=== PATIENT | male | born 1965 | race Caucasian/White ===

== ENCOUNTER → 2022-02-08 | Outpatient (CLI) | payer OTHER ==
--- NOTE | 2022-02-08 12:36 | CT ---
EXAMINATION TYPE: CT brain wo con DATE OF EXAM: 02/08/2022 COMPARISON: None HISTORY: Subdural hemorrhage. CT DLP: 1098.8 mGycm Automated exposure control for dose reduction was used. Helical imaging through the brain. FINDINGS: There is abnormal low attenuation, encephalomalacia and likely underlying gliosis involving the right frontal, parietal, occipital regions, ex vacuo phenomenon present of the right lateral ventricle. Co rtical atrophy is present. Basal ganglia on the right also show encephalomalacia possibly extending t o the level of the thalamus. No acute hemorrhage or hydrocephalus is suspected. The calvarium is inta ct. Orbits show symmetric appearance. Cerebral vascular calcifications are present. Paranasal sinuses and mastoid air cells appear well aerated. IMPRESSION: EXTENSIVE LOSS OF BRAIN VOLUME IS PRESENT ON THE RIGHT. COMPARISON WITH OLD EXAM MAY BE OF BENEFIT TO ASSESS FOR ANY INTERVAL CHANGE IF AVAILABLE.
--- NOTE | 2022-02-08 15:12 | US ---
EXAMINATION TYPE: US liver DATE OF EXAM: 02/08/2022 COMPARISON: NONE CLINICAL HISTORY: History of brain bleed I62.00 R94.5. Patient stated had abnormal liver bloodwork; h aving CT today; patient ate breakfast sandwich this morning. EXAM MEASUREMENTS: Liver Length: 15.0 cm Gallbladder Wall: 0.2 cm CBD: 0.4 cm Right Kidney: 11.4 x 4.8 x 4.1 cm Pancreas: Obscured by bowel gas Liver: wnl Gallbladder: wnl Evidence for sonographic De Santiago's sign: no CBD: wnl Right Kidney: No hydronephrosis or masses seen IMPRESSION: 1. No suspicious acute ultrasound of the abdomen abnormality
== END | disposition home or self-care (01) ==
LOC: RADUSWWP 10:41
PROVIDERS: ATTEND Internal Medicine
DX: I62.00 Nontraumatic subdural hemorrhage, unspecified (principal); R94.5 Abnormal results of liver function studies; R90.89 Other abnormal findings on diagnostic imaging of central nervous system
CPT/HCPCS: 70450; 76705

== ENCOUNTER 2022-08-12 10:02 | Inpatient (IN) | payer OTHER ==
[2022-08-12] MEDS ORDERED: SODIUM CHLORIDE 0.9% 1,000 ML IV STA ×3 (10:50→13:48)
[2022-08-12] MEDS ORDERED: ONDANSETRON 4 MG/2 ML VIAL IVP STA (10:50)
[2022-08-12] MEDS ORDERED: PANTOPRAZOLE 40 MG/10 ML VIAL IVP STA (10:50)
--- NOTE | 2022-08-12 10:51 | ED ---
Nausea/Vomiting/Diarrhea HPI - General Chief complaint: Nausea/Vomiting/Diarrhea Stated complaint: vomiting Time Seen by Provider: 08/12/22 10:43 Source: patient, RN notes reviewed Mode of arrival: ambulatory Limitations: no limitations - History of Present Illness Initial comments: This is a 56-year-old male who presents to the emergency department for nausea and vomiting. States that he was awake all night throwing up and has been unable to keep anything down for approximately 2 weeks. 2 weeks ago, he became septic from a UTI and was put on antibiotics. He was initially treated at the hospital in [place], [place], however he was unable to keep down those antibiotics. He then followed up with his PCP, Dr. Cabello, on 08/07, and was given an additio nal round of antibiotics, however he has also been unable to keep those down. He has associated abdominal pain in the epigastric and right upper quadrant region with radiation into the back. Denies any fevers, chills, sore throat, cough, dyspnea, chest pain, palpitations, diarrhea, or headaches. MD complaint: nausea, vomiting, abdominal pain Associated Abdominal Pain: Yes Location: RUQ, epigastric Radiation: other (Back) Context: recent antibiotic use - Related Data Home Medications Medication Instructions Recorded Confirmed Aspirin EC [Ecotrin Low Dose] 81 mg PO DAILY 01/06/22 08/12/22 Baclofen 5 mg PO TID PRN 01/06/22 08/12/22 rOPINIRole HCL [Requip] 0.5 mg PO DIRECTED 01/06/22 08/12/22 traZODone HCL [Desyrel] 100 mg PO DIRECTED 01/06/22 08/12/22 ALPRAZolam [Xanax] 0.5 mg PO TID PRN 08/12/22 08/12/22 ARIPiprazole [Abilify] 2 mg PO DAILY 08/12/22 08/12/22 Cefdinir [Omnicef] 300 mg PO DIRECTED 08/12/22 08/12/22 Diphenoxylate HCl/Atropine 1 tab PO BID PRN 08/12/22 08/12/22 [Lomotil 2.5-0.025 mg Tablet] Escitalopram [Lexapro] 20 mg PO DAILY 08/12/22 08/12/22 Ondansetron Odt [Zofran Odt] 4 mg PO Q12HR PRN 08/12/22 08/12/22 Pantoprazole [Protonix] 40 mg PO DIRECTED 08/12/22 08/12/22 Allergies Allergy/AdvReac Type Severity Reaction Status Date / Time No Known Allergies Allergy Verified 08/12/22 11:58 Review of Systems ROS Statement: Those systems with pertinent positive or pertinent negative responses have been documented in the HPI. ROS Other: All systems not noted in ROS Statement are negative. Past Medical History Past Medical History: CVA/TIA Additional Past Medical History / Comment(s): left side deficits from cva History of Any Multi-Drug Resistant Organisms: None Reported Additional Past Surgical History / Comment(s): pins in thumb Past Psychological History: No Psychological Hx Reported Smoking Status: Never smoker Past Alcohol Use History: Occasional Past Drug Use History: None Reported General Exam Limitations: no limitations General appearance: alert, in distress Head exam: Present: atraumatic, normocephalic, normal inspection Respiratory exam: Present: normal lung sounds bilaterally. Absent: respiratory distress, wheezes, rales, rhonchi, stridor Cardiovascular Exam: Present: regular rate, normal rhythm, normal heart sounds. Absent: systolic murmur, diastolic murmur, rubs, gallop, clicks GI/Abdominal exam: Present: soft, tenderness (Epigastric and right upper quadrant), normal bowel sounds. Absent: distended, guarding, rebound, rigid Extremities exam: Present: normal inspection, full ROM, normal capillary refill. Absent: tenderness, pedal edema, joint swelling, calf tenderness Neurological exam: Present: alert, oriented X3 Psychiatric exam: Present: normal affect, normal mood Skin exam: Present: warm, dry, intact, normal color. Absent: rash Course Vital Signs 08/12/22 08/12/22 08/12/22 10:05 13:00 13:55 Temperature 98.7 F Pulse Rate 74 102 H 100 Respiratory 20 18 18 Rate Blood Pressure 134/74 117/81 143/95 O2 Sat by Pulse 99 96 96 Oximetry Procedures - Sepsis Sepsis Focused Exam #1 Time Sepsis Criteria Met: 12:55 Sepsis Focused Exam Date: 08/12/22 Sepsis Focused Exam Time: 13:00 Sepsis Focused Exam Complete: Yes Vital Signs & RN Notes Reviewed: Yes Capillary Refill: < 2 Seconds: Fingers, Toes Peripheral Pulses: Normal: Radial (R), Radial (L), Dorsalis Pedis (R), Dorsalis Pedis (L) Skin Color: Normal for Patient Respiratory Exam: normal lung sounds Cardiovascular Exam: regular rate Medical Decision Making - Medical Decision Making This is a 56-year-old male who presents to the emergency department for nausea, vomiting, and abdominal pain. Patient was given IV fluids, Zofran, and Pr otonix. He had improvement in symptoms following medication administration with some residual pain. He was subsequently given a dose of Toradol. Ultrasound of the gallbladder obtained due to the location of the patient's pain. This identified no acute intra-abdominal irregularities. He did end up having another episode of emesis, and required a dose of Reglan. His urine does appear infected with a large amount of leukoesterase and high white blood cells. Lab work reveals leukocytosis and and a lactic acid of 4.0, meeting sepsis criteria. This was identified at approximately 1255 and focus exam was completed at 1300. Patient had already been started on his first liter of IV fluids and a second liter was subsequently ordered. Patient then placed on 130 mL an hour of maintenance fluids. Blood cultures were obtained and the patient was started on vancomycin and ceftriaxone. This case was discussed in detail with the attending ED physician. Presentation, findings, and treatment plan discussed in detail as well. - Lab Data Result diagrams: 08/12/22 11:21 08/12/22 11:21 Lab Results 08/12/22 08/12/22 08/12/22 Range/Units 11:21 11:21 11:21 WBC 19.5 H (3.8-10.6) k/uL RBC 5.27 (4.30-5.90) m/uL Hgb 15.2 (13.0-17.5) gm/dL Hct 45.5 (39.0-53.0) % MCV 86.4 (80.0-100.0) fL MCH 28.9 (25.0-35.0) pg MCHC 33.5 (31.0-37.0) g/dL RDW 13.8 (11.5-15.5) % Plt Count 517 H (150-450) k/uL MPV 7.1 Neutrophils % 94 % Lymphocytes % 3 % Monocytes % 3 % Eosinophils % 1 % Basophils % 0 % Neutrophils # 18.3 H (1.3-7.7) k/uL Lymphocytes # 0.6 L (1.0-4.8) k/uL Monocytes # 0.5 (0-1.0) k/uL Eosinophils # 0.1 (0-0.7) k/uL Basophils # 0.0 (0-0.2) k/uL Sodium 137 (137-145) mmol/L Potassium 4.1 (3.5-5.1) mmol/L Chloride 97 L (98-107) mmol/L Carbon Dioxide 26 (22-30) mmol/L Anion Gap 14 mmol/L BUN 8 L (9-20) mg/dL Creatinine 0.75 (0.66-1.25) mg/dL Est GFR (CKD-EPI)AfAm >90 (>60 ml/min/1.73 sqM) Est GFR (CKD-EPI)NonAf >90 (>60 ml/min/1.73 sqM) Glucose 136 H (74-99) mg/dL Plasma Lactic Acid Lasha (0.7-2.0) mmol/L Calcium 9.1 (8.4-10.2) mg/dL Total Bilirubin 0.6 (0.2-1.3) mg/dL AST 23 (17-59) U/L ALT 34 (4-49) U/L Alkaline Phosphatase 67 (38-126) U/L Troponin I (0.000-0.034) ng/mL Total Protein 7.1 (6.3-8.2) g/dL Albumin 4.4 (3.5-5.0) g/dL Amylase 53 (30-110) U/L Lipase 32 (23-300) U/L Urine Color Urine Appearance (Clear) Urine pH (5.0-8.0) Ur Specific [place] (1.001-1.035) Urine Protein (Negative) Urine Glucose (UA) (Negative) Urine Ketones (Negative) Urine Blood (Negative) Urine Nitrite (Negative) Urine Bilirubin (Negative) Urine Urobilinogen (<2.0) mg/dL Ur Leukocyte Esterase (Negative) Urine RBC (0-5) /hpf Urine WBC (0-5) /hpf Amorphous Sediment (None) /hpf Urine Mucus (None) /hpf Coronavirus (PCR) (Not Detectd) Influenza Type A RNA Not Detected (Not Detectd) Influenza Type B (PCR) Not Detected (Not Detectd) 08/12/22 08/12/22 08/12/22 Range/Units 11:21 11:21 12:12 WBC (3.8-10.6) k/uL RBC (4.30-5.90) m/uL Hgb (13.0-17.5) gm/dL Hct (39.0-53.0) % MCV (80.0-100.0) fL MCH (25.0-35.0) pg MCHC (31.0-37.0) g/dL RDW (11.5-15.5) % Plt Count (150-450) k/uL MPV Neutrophils % % Lymphocytes % % Monocytes % % Eosinophils % % Basophils % % Neutrophils # (1.3-7.7) k/uL Lymphocytes # (1.0-4.8) k/uL Monocytes # (0-1.0) k/uL Eosinophils # (0-0.7) k/uL Basophils # (0-0.2) k/uL Sodium (137-145) mmol/L Potassium (3.5-5.1) mmol/L Chloride (98-107) mmol/L Carbon Dioxide (22-30) mmol/L Anion Gap mmol/L BUN (9-20) mg/dL Creatinine (0.66-1.25) mg/dL Est GFR (CKD-EPI)AfAm (>60 ml/min/1.73 sqM) Est GFR (CKD-EPI)NonAf (>60 ml/min/1.73 sqM) Glucose (74-99) mg/dL Plasma Lactic Acid Lasha (0.7-2.0) mmol/L Calcium (8.4-10.2) mg/dL Total Bilirubin (0.2-1.3) mg/dL AST (17-59) U/L ALT (4-49) U/L Alkaline Phosphatase (38-126) U/L Troponin I <0.012 (0.000-0.034) ng/mL Total Protein (6.3-8.2) g/dL Albumin (3.5-5.0) g/dL Amylase (30-110) U/L Lipase (23-300) U/L Urine Color Yellow Urine Appearance Cloudy (Clear) Urine pH 7.0 (5.0-8.0) Ur Specific [place] 1.016 (1.001-1.035) Urine Protein Trace H (Negative) Urine Glucose (UA) Trace H (Negative) Urine Ketones Negative (Negative) Urine Blood Negative (Negative) Urine Nitrite Negative (Negative) Urine Bilirubin Negative (Negative) Urine Urobilinogen <2.0 (<2.0) mg/dL Ur Leukocyte Esterase Large H (Negative) Urine RBC 2 (0-5) /hpf Urine WBC 81 H (0-5) /hpf Amorphous Sediment Occasional H (None) /hpf Urine Mucus Rare H (None) /hpf Coronavirus (PCR) Not Detected (Not Detectd) Influenza Type A RNA (Not Detectd) Influenza Type B (PCR) (Not Detectd) 08/12/22 Range/Units 12:16 WBC (3.8-10.6) k/uL RBC (4.30-5.90) m/uL Hgb (13.0-17.5) gm/dL Hct (39.0-53.0) % MCV (80.0-100.0) fL MCH (25.0-35.0) pg MCHC (31.0-37.0) g/dL RDW (11.5-15.5) % Plt Count (150-450) k/uL MPV Neutrophils % % Lymphocytes % % Monocytes % % Eosinophils % % Basophils % % Neutrophils # (1.3-7.7) k/uL Lymphocytes # (1.0-4.8) k/uL Monocytes # (0-1.0) k/uL Eosinophils # (0-0.7) k/uL Basophils # (0-0.2) k/uL Sodium (137-145) mmol/L Potassium (3.5-5.1) mmol/L Chloride (98-107) mmol/L Carbon Dioxide (22-30) mmol/L Anion Gap mmol/L BUN (9-20) mg/dL Creatinine (0.66-1.25) mg/dL Est GFR (CKD-EPI)AfAm (>60 ml/min/1.73 sqM) Est GFR (CKD-EPI)NonAf (>60 ml/min/1.73 sqM) Glucose (74-99) mg/dL Plasma Lactic Acid Lasha 4.0 H* (0.7-2.0) mmol/L Calcium (8.4-10.2) mg/dL Total Bilirubin (0.2-1.3) mg/dL AST (17-59) U/L ALT (4-49) U/L Alkaline Phosphatase (38-126) U/L Troponin I (0.000-0.034) ng/mL Total Protein (6.3-8.2) g/dL Albumin (3.5-5.0) g/dL Amylase (30-110) U/L Lipase (23-300) U/L Urine Color Urine Appearance (Clear) Urine pH (5.0-8.0) Ur Specific [place] (1.001-1.035) Urine Protein (Negative) Urine Glucose (UA) (Negative) Urine Ketones (Negative) Urine Blood (Negative) Urine Nitrite (Negative) Urine Bilirubin (Negative) Urine Urobilinogen (<2.0) mg/dL Ur Leukocyte Esterase (Negative) Urine RBC (0-5) /hpf Urine WBC (0-5) /hpf Amorphous Sediment (None) /hpf Urine Mucus (None) /hpf Coronavirus (PCR) (Not Detectd) Influenza Type A RNA (Not Detectd) Influenza Type B (PCR) (Not Detectd) - EKG Data EKG Comments: Sinus rhythm. Normal axis. Ventricular rate 99 bpm, GA interval 138 ms, QRS duration 94 ms, QTC 398 ms. - Radiology Data Radiology results: report reviewed, image reviewed Disposition Clinical Impression: Sepsis Disposition: ADMITTED IP TO THIS [facility] Referrals: Asha Cabello MD [Primary Care Provider] - 1-2 days
[2022-08-12 11:37] LABS: Basophils % (A) 0 %; Eosinophils # (A) 0.1 k/uL (0-0.7); Eosinophils % (A) 1 %; HCT 45.5 % (39.0-53.0); HGB 15.2 gm/dL (13.0-17.5); Lymphocytes # (A) 0.6 k/uL (1.0-4.8); Lymphocytes % (A) 3 %; MCH 28.9 pg (25.0-35.0); MCHC 33.5 g/dL (31.0-37.0); MCV 86.4 fL (80.0-100.0); Mean Platelet Volume 7.1; Monocytes # (A) 0.5 k/uL (0-1.0); Monocytes % (A) 3 %; Neutrophils # (A) 18.3 k/uL (1.3-7.7); Neutrophils % (A) 94 %; Platelet Count 517 k/uL (150-450); RBC 5.27 m/uL (4.30-5.90); RDW 13.8 % (11.5-15.5); WBC 19.5 k/uL (3.8-10.6)
[2022-08-12 11:55] LABS: AST 23 U/L (17-59); African American GFR (CKD) >90 (>60 ml/min/1.73 sqM); Albumin 4.4 g/dL (3.5-5.0); Alkaline Phosphatase 67 U/L (38-126); Amylase 53 U/L (30-110); Anion Gap 14 mmol/L; Blood Urea Nitrogen 8 mg/dL (9-20); Calcium 9.1 mg/dL (8.4-10.2); Carbon Dioxide 26 mmol/L (22-30); Chloride 97 mmol/L (98-107); Glucose 136 mg/dL (74-99); Lipase 32 U/L (23-300); Non-African American GFR(CKD) >90 (>60 ml/min/1.73 sqM); Potassium 4.1 mmol/L (3.5-5.1); Sodium 137 mmol/L (137-145); Total Bilirubin 0.6 mg/dL (0.2-1.3); Total Protein 7.1 g/dL (6.3-8.2)
--- NOTE | 2022-08-12 12:00 | US ---
EXAMINATION TYPE: US gallbladder DATE OF EXAM: 08/12/2022 COMPARISON: US CLINICAL HISTORY: Epigastric and RUQ pain. Pt states ABD/chest pain, N&V TECHNIQUE: Multiple sonographic images of the right upper quadrant are obtained. FINDINGS: EXAM MEASUREMENTS: Liver Length: 14.9 cm Gallbladder Wall: 0.2 cm CBD: 0.4 cm Right Kidney: 10.0 x 5.0 x 4.5 cm [employer] NOTES:Pt paralyzed on left side/ unable to roll into LLD position Pancreas: wnl, tail obscured by overlying bowel gas Liver: Visualized portions appeared wnl/ imaged mostly intercostally Gallbladder: Visualized portions appeared wnl Evidence for sonographic De Santiago's sign: No CBD: wnl Right Kidney: wnl, lower pole gassed out IMPRESSION: No evidence for acute process.
[2022-08-12 12:05] LABS: ALT 34 U/L (4-49)
[2022-08-12] MEDS ORDERED: KETOROLAC 15 MG/ML 1 ML VIAL IVP STA (12:24)
[2022-08-12 12:47] LABS: Amorphous Sediment,Urine Occasional /hpf; Appearance,Urine Cloudy (Clear); Bilirubin,Urine Negative (Negative); Blood,Urine Negative (Negative); Color,Urine Yellow; Glucose,Urine (UA) Trace (Negative); Ketones,Urine Negative (Negative); Leukocyte Esterase,Urine Large (Negative); Mucus,Urine Rare /hpf; Nitrite,Urine Negative (Negative); Protein,Urine Trace (Negative); RBC,Urine 2 /hpf (0-5); Specific Gravity,Urine 1.016 (1.001-1.035); Urobilinogen,Urine <2.0 mg/dL (<2.0); WBC,Urine 81 /hpf (0-5)
[2022-08-12] MEDS ORDERED: METOCLOPRAMIDE 5 MG/ML 2 ML VIAL IVP STA (13:22)
[2022-08-12] MEDS ORDERED: VANCOMYCIN IV PER PHARMACY 1 EACH MISC MISCELLANE PRN (13:48)
[2022-08-12] MEDS ORDERED: VANCOMYCIN 1,250 MG in SODIUM CHLORIDE 0.9% 250 ML IVPB STA (13:52)
[2022-08-12] MEDS ORDERED: KETOROLAC 15 MG/ML 1 ML VIAL IVP PRN (14:28)
[2022-08-12] MEDS ORDERED: NALOXONE 0.4 MG/ML 1 ML VIAL IV PRN (14:28)
[2022-08-12] MEDS ORDERED: HYDROmorphone 0.5 MG/0.5 ML SYRINGE IVP PRN (14:28)
[2022-08-12] MEDS ORDERED: ACETAMINOPHEN TAB 325 MG TAB PO PRN (14:28)
[2022-08-12] MEDS ORDERED: HYDROmorphone 1 MG/ML 1 ML SYRINGE IVP PRN (14:28)
[2022-08-12] MEDS ORDERED: ONDANSETRON 4 MG/2 ML VIAL IVP PRN (14:28)
[2022-08-12] MEDS ORDERED: METOCLOPRAMIDE 5 MG/ML 2 ML VIAL IVP PRN (14:30)
--- NOTE | 2022-08-12 17:07 | P.HPIM ---
History of Present Illness H&P Date: 08/12/22 Leon Ortiz, is a 56 year-old male who presented to [facility] emergency room with a chief complaint of nausea vomiting and severe weakness He was evaluated in the emergency room vital examination on presentation revealed a temperature of 98.7 pulse 102 respiration 20 blood pressure 134/74 pulse ox 99% on room air Laboratory data revealed a white blood count of 19.5 hemoglobin 15.2 platelet count 517 sodium 137 potassium 4.1 chloride 97 CO2 26 BUN 8 creatinine 0.75 urine analysis revealed evidence of urinary tract infection lactic acid was elevated at 4.0 Testing in the emergency room revealed abdomen ultrasound revealed no evidence for acute process, EKG and revealed normal sinus rhythm normal EKG Patient was admitted to medical floor for further evaluation and treatment, he was started on IV fluid and IV antibiotic in the emergency room. Patient was recently seen in the office he was diagnosed with urinary tract infection and was given a course of oral antibiotic however he he started having severe vomiting and was not able to take oral antibiotics. His past medical history is significant for hypertension, history of stroke with left-sided hemiplegia, history of hyperlipidemia, history of vitamin D deficiency Past Medical History Past Medical History: CVA/TIA Additional Past Medical History / Comment(s): left side deficits from cva History of Any Multi-Drug Resistant Organisms: None Reported Additional Past Surgical History / Comment(s): pins in thumb Past Psychological History: No Psychological Hx Reported Smoking Status: Never smoker Past Alcohol Use History: Occasional Past Drug Use History: None Reported Medications and Allergies Home Medications Medication Instructions Recorded Confirmed Type Aspirin EC [Ecotrin Low Dose] 81 mg PO DAILY 01/06/22 08/12/22 History Baclofen 5 mg PO TID PRN 01/06/22 08/12/22 History rOPINIRole HCL [Requip] 0.5 mg PO DIRECTED 01/06/22 08/12/22 History traZODone HCL [Desyrel] 100 mg PO DIRECTED 01/06/22 08/12/22 History ALPRAZolam [Xanax] 0.5 mg PO TID PRN 08/12/22 08/12/22 History ARIPiprazole [Abilify] 2 mg PO DAILY 08/12/22 08/12/22 History Cefdinir [Omnicef] 300 mg PO DIRECTED 08/12/22 08/12/22 History Diphenoxylate HCl/Atropine 1 tab PO BID PRN 08/12/22 08/12/22 History [Lomotil 2.5-0.025 mg Tablet] Escitalopram [Lexapro] 20 mg PO DAILY 08/12/22 08/12/22 History Ondansetron Odt [Zofran Odt] 4 mg PO Q12HR PRN 08/12/22 08/12/22 History Pantoprazole [Protonix] 40 mg PO DIRECTED 08/12/22 08/12/22 History Allergies Allergy/AdvReac Type Severity Reaction Status Date / Time No Known Allergies Allergy Verified 08/12/22 11:58 Physical Exam Vitals: Vital Signs Temp Pulse Resp BP Pulse Ox 08/12/22 13:55 100 18 143/95 96 08/12/22 13:00 102 H 18 117/81 96 08/12/22 10:05 98.7 F 74 20 134/74 99 Intake and Output 08/12/22 08/12/22 08/12/22 06:59 14:59 22:59 Other: Weight 73.482 kg In general patient is alert and oriented x 3 in no distress HEENT head normocephalic and atraumatic Neck is supple no JVD no goiter no lymphadenopathy no carotid bruit Chest examination is clear to auscultation no crackles no wheezing Cardiac exam reveals regular heart sounds S1 and S2 no gallops no murmurs Abdomen is soft nontender no organomegaly with normal bowel sounds Extremity exam reveals no edema no cyanosis or clubbing Neurological examination reveals chronic left sided hemiplegia with spasm in the left upper extremity, otherwise no acute focal deficit Results CBC & Chem 7: 08/12/22 11:21 08/12/22 11:21 Labs: Abnormal Lab Results - Last 24 Hours (Table) 08/12/22 08/12/22 08/12/22 Range/Units 11:21 11:21 12:12 WBC 19.5 H (3.8-10.6) k/uL Plt Count 517 H (150-450) k/uL Neutrophils # 18.3 H (1.3-7.7) k/uL Lymphocytes # 0.6 L (1.0-4.8) k/uL Chloride 97 L (98-107) mmol/L BUN 8 L (9-20) mg/dL Glucose 136 H (74-99) mg/dL Plasma Lactic Acid Lasha (0.7-2.0) mmol/L Urine Protein Trace H (Negative) Urine Glucose (UA) Trace H (Negative) Ur Leukocyte Esterase Large H (Negative) Urine WBC 81 H (0-5) /hpf Amorphous Sediment Occasional H (None) /hpf Urine Mucus Rare H (None) /hpf 08/12/22 08/12/22 Range/Units 12:16 15:20 WBC (3.8-10.6) k/uL Plt Count (150-450) k/uL Neutrophils # (1.3-7.7) k/uL Lymphocytes # (1.0-4.8) k/uL Chloride (98-107) mmol/L BUN (9-20) mg/dL Glucose (74-99) mg/dL Plasma Lactic Acid Lasha 4.0 H* 2.4 H* (0.7-2.0) mmol/L Urine Protein (Negative) Urine Glucose (UA) (Negative) Ur Leukocyte Esterase (Negative) Urine WBC (0-5) /hpf Amorphous Sediment (None) /hpf Urine Mucus (None) /hpf Assessment and Plan Plan: Sepsis as evidenced by leukocytosis, and elevated lactic acid Urinary tract infection Underlying history of hypertension Underlying history of hyperlipidemia Underlying history of stroke with left sided hemiplegia At this time patient is admitted through emergency room He was started on IV fluid and IV antibiotic ceftriaxone and vancomycin in the emergency room Blood culture and urine culture were ordered Will recheck labs in a.m. For DVT prophylaxis subcu Lovenox, for GI prophylaxis Pepcid Will follow closely
[2022-08-12] MEDS: FAMOTIDINE 20 MG TAB PO SCH (21:39)
[2022-08-13] MEDS: VANCOMYCIN 1,500 MG in SODIUM CHLORIDE 0.9% 500 ML 500 ML IVPB SCH ×2 (03:03→15:39)
[2022-08-13 07:52] LABS: Basophils % (A) 0 %; Eosinophils # (A) 0.3 k/uL (0-0.7); Eosinophils % (A) 2 %; HCT 42.4 % (39.0-53.0); HGB 14.4 gm/dL (13.0-17.5); Lymphocytes # (A) 1.5 k/uL (1.0-4.8); Lymphocytes % (A) 10 %; MCH 29.2 pg (25.0-35.0); MCV 86.1 fL (80.0-100.0); Mean Platelet Volume 8.4; Monocytes # (A) 1.1 k/uL (0-1.0); Monocytes % (A) 7 %; Neutrophils # (A) 12.2 k/uL (1.3-7.7); Neutrophils % (A) 80 %; Platelet Count 389 k/uL (150-450); RBC 4.93 m/uL (4.30-5.90); RDW 14.1 % (11.5-15.5); WBC 15.3 k/uL (3.8-10.6)
[2022-08-13 07:59] LABS: ALT 19 U/L (4-49); African American GFR (CKD) >90 (>60 ml/min/1.73 sqM); Albumin 3.2 g/dL (3.5-5.0); Albumin/Globulin Ratio 1.3; Anion Gap 8 mmol/L; Blood Urea Nitrogen 9 mg/dL (9-20); Calcium 8.3 mg/dL (8.4-10.2); Carbon Dioxide 23 mmol/L (22-30); Chloride 107 mmol/L (98-107); Globulin 2.5 g/dL; Glucose 99 mg/dL (74-99); Non-African American GFR(CKD) >90 (>60 ml/min/1.73 sqM); Sodium 138 mmol/L (137-145); Total Bilirubin 0.9 mg/dL (0.2-1.3); Total Protein 5.7 g/dL (6.3-8.2)
[2022-08-13 08:03] LABS: AST 32 U/L (17-59); Potassium 4.7 mmol/L (3.5-5.1)
[2022-08-13 08:04] LABS: Alkaline Phosphatase 51 U/L (38-126)
[2022-08-13] MEDS: PANTOPRAZOLE 40 MG/10 ML VIAL IV SCH (08:04)
[2022-08-13] MEDS: FAMOTIDINE 20 MG TAB PO SCH ×2 (08:05→20:57)
[2022-08-13] MEDS: ENOXAPARIN 40 MG/0.4 ML SYRINGE SQ SCH (08:06)
--- NOTE | 2022-08-13 12:31 | P.PN ---
Subjective Progress Note Date: 08/13/22 Leon Ortiz, is a 56 year-old male who presented to [facility] emergency room with a chief complaint of nausea vomiting and severe weakness He was evaluated in the emergency room vital examination on presentation revealed a temperature of 98.7 pulse 102 respiration 20 blood pressure 134/74 pulse ox 99% on room air Laboratory data revealed a white blood count of 19.5 hemoglobin 15.2 platelet count 517 sodium 137 potassium 4.1 chloride 97 CO2 26 BUN 8 creatinine 0.75 urine analysis revealed evidence of urinary tract infection lactic acid was elevated at 4.0 Testing in the emergency room revealed abdomen ultrasound revealed no evidence for acute process, EKG and revealed normal sinus rhythm normal EKG Patient was admitted to medical floor for further evaluation and treatment, he was started on IV fluid and IV antibiotic in the emergency room. Patient was recently seen in the office he was diagnosed with urinary tract infection and was given a course of oral antibiotic however he he started having severe vomiting and was not able to take oral antibiotics. His past medical history is significant for hypertension, history of stroke with left-sided hemiplegia, history of hyperlipidemia, history of vitamin D deficiency On 08/13/2022 patient was seen and examined on the medical floor he is alert and oriented 3 in no apparent distress there is no fever or chills no headache or dizziness no chest pain, no shortness of breath no cough no nausea or vomiting no abdominal pain no diarrhea no blood in the stools no burning with urination no frequency or urgency and no hematuria, temperature is 97.4 pulse 65 respiration 17 blood pressure 115/67 pulse ox 97% on room air white blood count is down today to 15.3 hemoglobin 14.4 platelet count 389 lactic acid is down to 2.0 Objective - Vital Signs Vital signs: Vital Signs Temp 98.2 F 08/13/22 08:00 Pulse 65 08/13/22 08:00 Resp 17 08/13/22 08:00 BP 113/75 08/13/22 08:00 Pulse Ox 100 08/13/22 08:00 FiO2 Intake & Output 08/12/22 08/13/22 08/13/22 18:59 06:59 18:59 Intake Total 400 Output Total 600 550 Balance -200 -550 Weight 73.482 kg 73.482 kg Intake: Oral 400 Output: Urine 600 550 Other: Voiding Method Urinal - Exam In general patient is alert and oriented x 3 in no distress HEENT head normocephalic and atraumatic Neck is supple no JVD no goiter no lymphadenopathy no carotid bruit Chest examination is clear to auscultation no crackles no wheezing Cardiac exam reveals regular heart sounds S1 and S2 no gallops no murmurs Abdomen is soft nontender no organomegaly with normal bowel sounds Extremity exam reveals no edema no cyanosis or clubbing Neurological examination reveals chronic left sided hemiplegia with spasm in the left upper extremity, otherwise no acute focal deficit - Labs CBC & Chem 7: 08/13/22 07:27 08/13/22 07:27 Labs: Abnormal Lab Results - Last 24 Hours (Table) 08/12/22 08/12/22 08/12/22 Range/Units 12:12 12:16 15:20 WBC (3.8-10.6) k/uL Neutrophils # (1.3-7.7) k/uL Monocytes # (0-1.0) k/uL Plasma Lactic Acid Lasha 4.0 H* 2.4 H* (0.7-2.0) mmol/L Calcium (8.4-10.2) mg/dL Total Protein (6.3-8.2) g/dL Albumin (3.5-5.0) g/dL Urine Protein Trace H (Negative) Urine Glucose (UA) Trace H (Negative) Ur Leukocyte Esterase Large H (Negative) Urine WBC 81 H (0-5) /hpf Amorphous Sediment Occasional H (None) /hpf Urine Mucus Rare H (None) /hpf 08/13/22 08/13/22 Range/Units 07:27 07:27 WBC 15.3 H (3.8-10.6) k/uL Neutrophils # 12.2 H (1.3-7.7) k/uL Monocytes # 1.1 H (0-1.0) k/uL Plasma Lactic Acid Lasha (0.7-2.0) mmol/L Calcium 8.3 L (8.4-10.2) mg/dL Total Protein 5.7 L (6.3-8.2) g/dL Albumin 3.2 L (3.5-5.0) g/dL Urine Protein (Negative) Urine Glucose (UA) (Negative) Ur Leukocyte Esterase (Negative) Urine WBC (0-5) /hpf Amorphous Sediment (None) /hpf Urine Mucus (None) /hpf Microbiology - Last 24 Hours (Table) 08/12/22 12:12 Urine Culture - Preliminary Urine,Voided Assessment and Plan Plan: Sepsis as evidenced by leukocytosis, and elevated lactic acid Urinary tract infection Underlying history of hypertension Underlying history of hyperlipidemia Underlying history of stroke with left sided hemiplegia At this time patient is admitted through emergency room He was started on IV fluid and IV antibiotic ceftriaxone and vancomycin in the emergency room urine culture were ordered awaiting results will continue with current antibiotic at this time Awaiting input from infectious disease Will recheck labs in a.m. For DVT prophylaxis subcu Lovenox, for GI prophylaxis Pepcid Will follow closely
[2022-08-13 14:15] VITALS: BMI 23.9
[2022-08-13] MEDS ORDERED: BACLOFEN 10 MG TAB PO PRN (15:12)
[2022-08-13] MEDS ORDERED: ALPRAZolam 0.5 MG TAB PO PRN (15:12)
[2022-08-13] MEDS: ESCITALOPRAM 20 MG TAB PO SCH (15:38)
[2022-08-13] MEDS: ARIPiprazole 2 MG TAB PO SCH (15:39)
[2022-08-13] MEDS: ASPIRIN 81 MG PO SCH (15:39)
[2022-08-13] MEDS ORDERED: traZODone HCL 100 MG TAB PO SCH (21:00)
--- NOTE | 2022-08-13 23:10 | P.CONS ---
History of Present Illness - Reason for Consult Consult date: 08/13/22 - History of Present Illness Patient is a 56-year-old male with a past medical history significant for CVA left-sided deficit presenting to the hospital for evaluation of nausea vomiting weakness and has been complaining of some pain to the right side of the flank area patient describing it to be more of a dull aching to sharp 4-5 out of 10 and no radiation patient has associated nausea and vomiting patient denies having any diarrhea no significant difficulty urination with the symptom the patient was evaluated by the ER physician on arrival to the ER patient was afebrile and no fever have been recorded subsequently patient did have white count of 19.5 with a left shift creatinine has been normal lactic acid was elevated he did have a positive UA culture is currently pending influenza and COVID PCR was negative blood culture has been negative patient was started on Rocephin 1 g daily along with vancomycin pharmacy to dose infectious disease was consulted for further management of antibiotic therapy patient did have a right upper quadrant ultrasound no evidence of acute process right kidney was within normal limit Past Medical History Past Medical History: CVA/TIA Additional Past Medical History / Comment(s): left side deficits from cva History of Any Multi-Drug Resistant Organisms: None Reported Additional Past Surgical History / Comment(s): pins in thumb Past Psychological History: No Psychological Hx Reported Smoking Status: Never smoker Past Alcohol Use History: Occasional Past Drug Use History: None Reported Medications and Allergies Home Medications Medication Instructions Recorded Confirmed Type Aspirin EC [Ecotrin Low Dose] 81 mg PO DAILY 01/06/22 08/12/22 History Baclofen 5 mg PO TID PRN 01/06/22 08/12/22 History rOPINIRole HCL [Requip] 0.5 mg PO DIRECTED 01/06/22 08/12/22 History traZODone HCL [Desyrel] 100 mg PO DIRECTED 01/06/22 08/12/22 History ALPRAZolam [Xanax] 0.5 mg PO TID PRN 08/12/22 08/12/22 History ARIPiprazole [Abilify] 2 mg PO DAILY 08/12/22 08/12/22 History Cefdinir [Omnicef] 300 mg PO DIRECTED 08/12/22 08/12/22 History Diphenoxylate HCl/Atropine 1 tab PO BID PRN 08/12/22 08/12/22 History [Lomotil 2.5-0.025 mg Tablet] Escitalopram [Lexapro] 20 mg PO DAILY 08/12/22 08/12/22 History Ondansetron Odt [Zofran Odt] 4 mg PO Q12HR PRN 08/12/22 08/12/22 History Pantoprazole [Protonix] 40 mg PO DIRECTED 08/12/22 08/12/22 History Allergies Allergy/AdvReac Type Severity Reaction Status Date / Time No Known Allergies Allergy Verified 08/12/22 11:58 Physical Exam Vitals: Vital Signs Temp Pulse Pulse Resp BP BP Pulse Ox 08/13/22 08:00 98.2 F 65 17 113/75 100 08/13/22 02:00 97.4 F L 65 17 115/67 97 08/12/22 21:27 14 08/12/22 21:00 98.7 F 70 18 128/80 99 08/12/22 18:30 81 18 115/86 08/12/22 17:00 86 18 112/76 95 08/12/22 15:00 90 18 116/81 96 08/12/22 13:55 100 18 143/95 96 08/12/22 13:00 102 H 18 117/81 96 Intake and Output 08/12/22 08/13/22 08/13/22 22:59 06:59 14:59 Intake Total 400 Output Total 600 550 Balance -200 -550 Intake: Oral 400 Output: Urine 600 550 Other: Voiding Method Urinal Weight 73.482 kg Results CBC & Chem 7: 08/13/22 07:27 08/13/22 07:27 Labs: Abnormal Lab Results - Last 24 Hours (Table) 08/12/22 08/12/22 08/12/22 Range/Units 11:21 12:12 12:16 WBC (3.8-10.6) k/uL Neutrophils # (1.3-7.7) k/uL Monocytes # (0-1.0) k/uL Chloride 97 L (98-107) mmol/L BUN 8 L (9-20) mg/dL Glucose 136 H (74-99) mg/dL Plasma Lactic Acid Lasha 4.0 H* (0.7-2.0) mmol/L Calcium (8.4-10.2) mg/dL Total Protein (6.3-8.2) g/dL Albumin (3.5-5.0) g/dL Urine Protein Trace H (Negative) Urine Glucose (UA) Trace H (Negative) Ur Leukocyte Esterase Large H (Negative) Urine WBC 81 H (0-5) /hpf Amorphous Sediment Occasional H (None) /hpf Urine Mucus Rare H (None) /hpf 08/12/22 08/13/22 08/13/22 Range/Units 15:20 07:27 07:27 WBC 15.3 H (3.8-10.6) k/uL Neutrophils # 12.2 H (1.3-7.7) k/uL Monocytes # 1.1 H (0-1.0) k/uL Chloride (98-107) mmol/L BUN (9-20) mg/dL Glucose (74-99) mg/dL Plasma Lactic Acid Lasha 2.4 H* (0.7-2.0) mmol/L Calcium 8.3 L (8.4-10.2) mg/dL Total Protein 5.7 L (6.3-8.2) g/dL Albumin 3.2 L (3.5-5.0) g/dL Urine Protein (Negative) Urine Glucose (UA) (Negative) Ur Leukocyte Esterase (Negative) Urine WBC (0-5) /hpf Amorphous Sediment (None) /hpf Urine Mucus (None) /hpf Microbiology - Last 24 Hours (Table) 08/12/22 12:12 Urine Culture - Preliminary Urine,Voided Assessment and Plan Plan: 1patient presented to hospital with generalized weakness intractable nausea and vomiting did have right flank pain concerning for right-sided pyelonephritis in this patient did have a positive UA however the patient recently has received antibiotic in the outpatient setting could be responsible for her negative urine culture patient currently with no evidence of any abdominal pain on clinical examination and ultrasound of the gallbladder area was normal. 2patient to continue with Rocephin however discontinue vancomycin. We will follow on clinical condition and cultures to further adjust medication if needed Thank you for this consultation will follow this patient along with you Time with Patient: Greater than 30
[2022-08-14 03:50] VITALS: RESP 17
[2022-08-14 06:33] LABS: ALT 16 U/L (4-49); AST 16 U/L (17-59); African American GFR (CKD) >90 (>60 ml/min/1.73 sqM); Albumin 2.8 g/dL (3.5-5.0); Albumin/Globulin Ratio 1.2; Alkaline Phosphatase 49 U/L (38-126); Anion Gap 6 mmol/L; Blood Urea Nitrogen 5 mg/dL (9-20); Calcium 8.1 mg/dL (8.4-10.2); Carbon Dioxide 29 mmol/L (22-30); Chloride 101 mmol/L (98-107); Globulin 2.4 g/dL; Glucose 95 mg/dL (74-99); Non-African American GFR(CKD) >90 (>60 ml/min/1.73 sqM); Potassium 3.8 mmol/L (3.5-5.1); Sodium 136 mmol/L (137-145); Total Bilirubin 0.7 mg/dL (0.2-1.3); Total Protein 5.2 g/dL (6.3-8.2)
[2022-08-14] MEDS ORDERED: PANTOPRAZOLE 40 MG TABLET PO SCH (07:30)
[2022-08-14 07:45] VITALS: BP 110/72; PULSE 62; TEMP 98.1
[2022-08-14] MEDS: ARIPiprazole 2 MG TAB PO SCH (08:17)
[2022-08-14] MEDS: ENOXAPARIN 40 MG/0.4 ML SYRINGE SQ SCH (08:17)
[2022-08-14] MEDS: PANTOPRAZOLE 40 MG/10 ML VIAL IV SCH (08:17)
[2022-08-14] MEDS: ASPIRIN 81 MG PO SCH (08:17)
[2022-08-14] MEDS: ESCITALOPRAM 20 MG TAB PO SCH (08:17)
[2022-08-14] MEDS: FAMOTIDINE 20 MG TAB PO SCH (08:17)
[2022-08-14 09:04] LABS: Basophils # (A) 0.08 X 10*3/uL (0.00-0.10); Basophils % (A) 0.8 %; Eosinophils # (A) 0.12 X 10*3/uL (0.04-0.35); Eosinophils % (A) 1.1 %; HCT 37.9 % (39.6-50.0); HGB 12.5 g/dL (13.0-17.0); Immature Grans, Automated 0.5 %; Lymphocytes # (A) 1.33 X 10*3/uL (0.90-5.00); Lymphocytes % (A) 12.6 %; MCH 28.3 pg (27.0-32.0); MCV 85.9 fL (80.0-97.0); Monocytes # (A) 1.31 X 10*3/uL (0.20-1.00); Monocytes % (A) 12.5 %; NRBC Per 100 WBC 0 /100 WBCS (0.0-0.0); Neutrophils # (A) 7.63 X 10*3/uL (1.80-7.70); Neutrophils % (A) 72.5 %; Platelet Count 422 X 10*3/uL (140-440); RBC 4.41 X 10*6/uL (4.40-5.60); RDW 15.3 % (11.5-14.5); WBC 10.52 X 10*3/uL (4.50-10.00)
--- NOTE | 2022-08-14 09:39 | P.PN ---
Subjective Progress Note Date: 08/14/22 Leon Ortiz, is a 56 year-old male who presented to [facility] emergency room with a chief complaint of nausea vomiting and severe weakness He was evaluated in the emergency room vital examination on presentation revealed a temperature of 98.7 pulse 102 respiration 20 blood pressure 134/74 pulse ox 99% on room air Laboratory data revealed a white blood count of 19.5 hemoglobin 15.2 platelet count 517 sodium 137 potassium 4.1 chloride 97 CO2 26 BUN 8 creatinine 0.75 urine analysis revealed evidence of urinary tract infection lactic acid was elevated at 4.0 Testing in the emergency room revealed abdomen ultrasound revealed no evidence for acute process, EKG and revealed normal sinus rhythm normal EKG Patient was admitted to medical floor for further evaluation and treatment, he was started on IV fluid and IV antibiotic in the emergency room. Patient was recently seen in the office he was diagnosed with urinary tract infection and was given a course of oral antibiotic however he he started having severe vomiting and was not able to take oral antibiotics. His past medical history is significant for hypertension, history of stroke with left-sided hemiplegia, history of hyperlipidemia, history of vitamin D deficiency On 08/13/2022 patient was seen and examined on the medical floor he is alert and oriented 3 in no apparent distress there is no fever or chills no headache or dizziness no chest pain, no shortness of breath no cough no nausea or vomiting no abdominal pain no diarrhea no blood in the stools no burning with urination no frequency or urgency and no hematuria, temperature is 97.4 pulse 65 respiration 17 blood pressure 115/67 pulse ox 97% on room air white blood count is down today to 15.3 hemoglobin 14.4 platelet count 389 lactic acid is down to 2.0 On 08/14/2022 patient's alert and oriented 3. Patient reports improvement with nausea and vomiting. White blood cell improving to 10.52. Patient remains on IV Rocephin. Infectious disease services are following. Blood and urine cultures negative. Current vital signs temp 98.1, heart rate 62, respiratory rate 17, blood pressure 110/72 with a pulse ox of 97% on room air. Patient denies chest pain or shortness breath. Patient denies nausea vomiting or diarrhea. Patient denies any urinary burning or frequency Objective - Vital Signs Vital signs: Vital Signs Temp 98.1 F 08/14/22 07:44 Pulse 62 08/14/22 07:44 Resp 17 08/14/22 07:44 BP 110/72 08/14/22 07:44 Pulse Ox 97 08/14/22 07:44 FiO2 Intake & Output 08/13/22 08/14/22 08/14/22 18:59 06:59 18:59 Output Total 1730 2150 Balance -1730 -2150 Weight 73.482 kg Output: Urine 1730 2150 Other: Voiding Method Urinal Toilet Urinal - Exam In general patient is alert and oriented x 3 in no distress HEENT head normocephalic and atraumatic Neck is supple no JVD no goiter no lymphadenopathy no carotid bruit Chest examination is clear to auscultation no crackles no wheezing Cardiac exam reveals regular heart sounds S1 and S2 no gallops no murmurs Abdomen is soft nontender no organomegaly with normal bowel sounds Extremity exam reveals no edema no cyanosis or clubbing Neurological examination reveals chronic left sided hemiplegia with spasm in the left upper extremity, otherwise no acute focal deficit - Labs CBC & Chem 7: 08/14/22 05:46 08/14/22 05:46 Labs: Abnormal Lab Results - Last 24 Hours (Table) 08/14/22 08/14/22 Range/Units 05:46 05:46 WBC 10.52 H (4.50-10.00) X 10*3/uL Hgb 12.5 L (13.0-17.0) g/dL Hct 37.9 L (39.6-50.0) % RDW 15.3 H (11.5-14.5) % MPV 9.0 L (9.5-12.2) fL Immature Gran # 0.05 H (0.00-0.04) X 10*3/uL Monocytes # 1.31 H (0.20-1.00) X 10*3/uL Sodium 136 L (137-145) mmol/L BUN 5 L (9-20) mg/dL Calcium 8.1 L (8.4-10.2) mg/dL AST 16 L (17-59) U/L Total Protein 5.2 L (6.3-8.2) g/dL Albumin 2.8 L (3.5-5.0) g/dL Microbiology - Last 24 Hours (Table) 08/12/22 12:12 Urine Culture - Final Urine,Voided 08/12/22 14:11 Blood Culture - Preliminary Blood No Growth after 24 hours 08/12/22 13:55 Blood Culture - Preliminary Blood No Growth after 24 hours Assessment and Plan Plan: Sepsis as evidenced by leukocytosis, and elevated lactic acid Urinary tract infection Underlying history of hypertension Underlying history of hyperlipidemia Underlying history of stroke with left sided hemiplegia GI prophylaxis Protonix. DVT prophylaxis [facility] Infectious disease service is following Patient remains on IV Rocephin Blood and urine cultures negative Repeat labs ordered
--- NOTE | 2022-08-14 11:54 | P.DS ---
Providers Date of admission: 08/12/22 14:28 Expected date of discharge: 08/14/22 Attending physician: Asha Cabello Consults: 08/12/22 17:10 Consult Physician Routine Consulting Provider: Florecita Hernández Consult Reason/Comments: sepsis Do you want consulting provider notified?: Yes Primary care physician: Asha Cabello [facility] Course: Discharge diagnosis Sepsis as evidenced by leukocytosis, and elevated lactic acid Urinary tract infection Underlying history of hypertension Underlying history of hyperlipidemia Underlying history of stroke with left sided hemiplegia Hospital course Leon Ortiz, is a 56 year-old male who presented to [facility] emergency room with a chief complaint of nausea vomiting and severe weakness He was evaluated in the emergency room vital examination on presentation revealed a temperature of 98.7 pulse 102 respiration 20 blood pressure 134/74 pulse ox 99% on room air Laboratory data revealed a white blood count of 19.5 hemoglobin 15.2 platelet count 517 sodium 137 potassium 4.1 chloride 97 CO2 26 BUN 8 creatinine 0.75 urine analysis revealed evidence of urinary tract infection lactic acid was elevated at 4.0 Testing in the emergency room revealed abdomen ultrasound revealed no evidence for acute process, EKG and revealed normal sinus rhythm normal EKG Patient was admitted to medical floor for further evaluation and treatment, he was started on IV fluid and IV antibiotic in the emergency room. Patient was recently seen in the office he was diagnosed with urinary tract infection and was given a course of oral antibiotic however he he started having severe vomiting and was not able to take oral antibiotics. His past medical history is significant for hypertension, history of stroke with left-sided hemiplegia, history of hyperlipidemia, history of vitamin D deficiency On 08/13/2022 patient was seen and examined on the medical floor he is alert and oriented 3 in no apparent distress there is no fever or chills no headache or dizziness no chest pain, no shortness of breath no cough no nausea or vomiting no abdominal pain no diarrhea no blood in the stools no burning with urination no frequency or urgency and no hematuria, temperature is 97.4 pulse 65 respiration 17 blood pressure 115/67 pulse ox 97% on room air white blood count is down today to 15.3 hemoglobin 14.4 platelet count 389 lactic acid is down to 2.0 On 08/14/2022 patient's alert and oriented 3. Patient reports improvement with nausea and vomiting. White blood cell improving to 10.52. Patient remains on IV Rocephin. Infectious disease services are following. Blood and urine cultures negative. Current vital signs temp 98.1, heart rate 62, respiratory rate 17, blood pressure 110/72 with a pulse ox of 97% on room air. Patient denies chest pain or shortness breath. Patient denies nausea vomiting or diarrhea. Patient denies any urinary burning or frequency Blood and urine cultures negative. Discussed case with infectious disease Dr. Hernández. Patient may be DC'd on Ceftin for 5 days. White blood cell improving to 10.52. Patient has remained afebrile. Patient to follow-up with PCP upon discharge Patient Condition at Discharge: Stable Plan - Discharge Summary Discharge Rx Participant: Yes New Discharge Prescriptions: New Cefuroxime [Ceftin] 250 mg PO BID 5 Days #10 tab Continue Aspirin EC [Ecotrin Low Dose] 81 mg PO DAILY Pantoprazole [Protonix] 40 mg PO DIRECTED Ondansetron Odt [Zofran ODT] 4 mg PO Q12HR PRN PRN Reason: Nausea Escitalopram [Lexapro] 20 mg PO DAILY Diphenoxylate HCl/Atropine [Lomotil 2.5-0.025 mg Tablet] 1 tab PO BID PRN PRN Reason: Diarrhea traZODone HCL [Desyrel] 100 mg PO DIRECTED rOPINIRole HCL [Requip] 0.5 mg PO DIRECTED Baclofen 5 mg PO TID PRN PRN Reason: Muscle Spasm ALPRAZolam [Xanax] 0.5 mg PO TID PRN PRN Reason: Anxiety ARIPiprazole [Abilify] 2 mg PO DAILY Discontinued Cefdinir [Omnicef] 300 mg PO DIRECTED Discharge Medication List Aspirin EC [Ecotrin Low Dose] 81 mg PO DAILY 01/06/22 [History] Baclofen 5 mg PO TID PRN 01/06/22 [History] rOPINIRole HCL [Requip] 0.5 mg PO DIRECTED 01/06/22 [History] traZODone HCL [Desyrel] 100 mg PO DIRECTED 01/06/22 [History] ALPRAZolam [Xanax] 0.5 mg PO TID PRN 08/12/22 [History] ARIPiprazole [Abilify] 2 mg PO DAILY 08/12/22 [History] Diphenoxylate HCl/Atropine [Lomotil 2.5-0.025 mg Tablet] 1 tab PO BID PRN 08/12/22 [History] Escitalopram [Lexapro] 20 mg PO DAILY 08/12/22 [History] Ondansetron Odt [Zofran ODT] 4 mg PO Q12HR PRN 08/12/22 [History] Pantoprazole [Protonix] 40 mg PO DIRECTED 08/12/22 [History] Cefuroxime [Ceftin] 250 mg PO BID 5 Days #10 tab 08/14/22 [Rx] Follow up Appointment(s)/Referral(s): Asha Cabello MD [Primary Care Provider] - 1-2 days Discharge Disposition: HOME SELF-CARE
[2022-08-14] MEDS ORDERED: VANCOMYCIN TROUGH DUE 1 EACH MISC MISCELLANE ONE (14:00)
== END 2022-08-14 13:32 | disposition home or self-care (01) | DRG 872 ==
LOC: EC 10:02 → 4SSUR 14:28
PROVIDERS: ADMIT Internal Medicine; ATTEND Internal Medicine
DX: A41.9 Sepsis, unspecified organism (principal); I69.354 Hemiplegia and hemiparesis following cerebral infarction affecting left non-dominant side; N12 Tubulo-interstitial nephritis, not specified as acute or chronic; Z20.822 Contact with and (suspected) exposure to COVID-19; Z53.9 Procedure and treatment not carried out, unspecified reason; E55.9 Vitamin D deficiency, unspecified; E78.5 Hyperlipidemia, unspecified; I10 Essential (primary) hypertension; Z79.82 Long term (current) use of aspirin; Z79.899 Other long term (current) drug therapy
CPT/HCPCS: 36415; 76705; 80053; 81001; 82150; 83605; 83690; 84484; 85025; 87040; 87086; 87502; 87635; 93005; 96361; 96365; 96375; 99285

== ENCOUNTER 2024-05-21 16:39 | Inpatient (IN) | payer SELFPAY ==
--- NOTE | 2024-05-21 17:00 | ED ---
General Adult HPI - General Chief complaint: Neuro Symptoms/Deficit Stated complaint: Slurred Speech,AMS Time Seen by Provider: 05/21/24 16:48 Source: patient Mode of arrival: ambulatory Limitations: no limitations - History of Present Illness Initial comments: Patient is a 58-year-old gentleman CVA with left-sided deficits presenting today for slurred speech and disorientation. Patient states symptoms started 15 minutes prior to arrival. On arrival to the emergency department patient states symptoms are improving and his slurred speech has resolved however he still feels disoriented. Knows that Wayne Awan is the president though unsure of date. Patient denies any changes in vision, dizziness, headache, numbness, weakness, chest pain, shortness of breath. States left upper extremity weakness is residual from prior stroke. Is not on blood thinners - Related Data Home Medications Medication Instructions Recorded Confirmed Baclofen 5 mg PO HS 01/06/22 05/21/24 ALPRAZolam [Xanax] 0.5 mg PO DAILY PRN 08/12/22 05/21/24 ARIPiprazole [Abilify] 2 mg PO DAILY 08/12/22 05/21/24 Escitalopram [Lexapro] 20 mg PO DAILY 08/12/22 05/21/24 ALPRAZolam [Xanax] 0.5 mg PO HS 05/21/24 05/21/24 Allergies Allergy/AdvReac Type Severity Reaction Status Date / Time No Known Allergies Allergy Verified 05/21/24 17:38 Review of Systems ROS Statement: Those systems with pertinent positive or pertinent negative responses have been documented in the HPI. Past Medical History Past Medical History: CVA/TIA Additional Past Medical History / Comment(s): left side deficits from cva History of Any Multi-Drug Resistant Organisms: None Reported Additional Past Surgical History / Comment(s): pins in thumb Past Psychological History: No Psychological Hx Reported Smoking Status: Never smoker Past Alcohol Use History: Occasional Past Drug Use History: None Reported General Exam - General Exam Comments Initial Comments: PE: CONSTITUTIONAL: No apparent distress, well appearing SKIN: Warm, dry, no jaundice, hives or petechiae EYES: Pupils are equally round, extraocular movements intact without nystagmus, clear conjunctiva, non-icteric sclera HENT: Normocephalic, atraumatic, moist mucus membranes, oropharynx clear without exudates NECK: , Full range of motion, normal appearance PULMONARY: Clear to auscultation without wheezes, rhonchi, or rales, normal excursion, no accessory muscle use and no stridor CARDIOVASCULAR: Regular rate, rhythm, normal S1 and S2. No appreciated murmurs, rubs or gallops. Strong radial pulses with intact distal perfusion. No lower extremity edema GASTROINTESTINAL: Soft, non-tender, non-distended, no palpable masses, no rebound or guarding. No hepatosplenomegaly MUSCULOSKELETAL: Left hand has chronic muscle contractures otherwise, extremities have no gross deformity, no edema, redness, or swelling. No calf swelling ot TTP. NEUROLOGIC: a/o x person, place, situation though not date, knows that Wayne Awan is president, [employer], normal mentation and speech. Cranial nerves: II (visual saleh without defects), III, IV and (extraocular movements are intact, pupils are equal with normal reaction to light), V (intact facial sensation and jaw opening), VII mild left facial droop is present, patient states at baseline, IX and X (normal palate movement, midline uvula, normal voice), XI (weakness with left shoulder shrug, and normal lateral head rotation against resistance), XII (midline tongue protrusion). Left upper extremity weakness, is able to lift his left arm off the bed though there is some drift, patient states is baseline, 4/5 strength left lower extremity though is able to lift and keep leg off of the floor, patient states is baseline, full 5/5 strength in right sided extremities, no abnormal movements. Muscle contractures of left hand and distal LUE, otherwise normal muscle tone. Sensation to light touch is intact bilaterally. Cerenellar testing limited as patient unable to perform with LUE, though normal finger to nose with RUE and normal heel to pozo bilaterally PSYCHIATRIC:_normal mood and affect, thought process is clear and linear Limitations: no limitations Course Vital Signs 05/21/24 05/21/24 05/21/24 16:40 16:56 17:00 Temperature 97.9 F Pulse Rate 85 Respiratory 18 Rate Blood Pressure 126/88 118/100 121/89 O2 Sat by Pulse 98 Oximetry 05/21/24 05/21/24 05/21/24 17:30 17:40 17:50 Temperature Pulse Rate Respiratory Rate Blood Pressure 128/87 128/80 128/80 O2 Sat by Pulse Oximetry 05/21/24 05/21/24 05/21/24 18:00 18:10 18:20 Temperature Pulse Rate 64 64 Respiratory Rate Blood Pressure 128/80 116/80 116/80 O2 Sat by Pulse Oximetry 05/21/24 05/21/24 05/21/24 18:30 18:40 18:50 Temperature Pulse Rate 67 65 66 Respiratory Rate Blood Pressure 116/80 122/81 122/81 O2 Sat by Pulse Oximetry 05/21/24 05/21/24 05/22/24 20:45 23:41 05:27 Temperature 97.8 F 97.8 F Pulse Rate 58 L 66 64 Respiratory 15 16 15 Rate Blood Pressure 126/84 116/85 116/84 O2 Sat by Pulse 95 96 96 Oximetry 05/22/24 05/22/24 08:42 12:54 Temperature 98.0 F Pulse Rate 73 74 Respiratory 18 20 Rate Blood Pressure 121/81 124/79 O2 Sat by Pulse 97 95 Oximetry - Reevaluation(s) Reevaluation #1: Patient seen and evaluated, states symptoms are improving though still feels disoriented, unsure of month, day is oriented to self and place. NIH 3 however 2 points are from patient's residual left upper extremity deficits, 1 for disorientation. Code thrombolytics was called as patient is within 4.5 hours symptom onset, though likely not tNK candidate due to low NIH and rapidly improving symptoms 05/21/24 17:00 05/22/24 14:13 Reevaluation #2: Spoke with Dr. Sims, agrees not tNK candidate due to low NIH, however recommends 40 mg, full dose aspirin and admission for further workup 05/21/24 17:06 05/22/24 14:14 Reevaluation #3: Patient's sister arrived and provided further history, states that she got a call from patient's girlfriend who is also bedside, stating that his girlfriend noticed the patient to be drooling, suddenly laughing hysterically and was unable to speak though was able to point her towards the hospital. Of note jessica faulkner's stroke in 2000 was a hemorrhagic stroke so patient is not on blood thinners. Full dose aspirin was canceled and will be held until hemorrhage ruled out 05/21/24 17:13 05/22/24 14:14 Reevaluation #4: CT brain shows no evidence of hemorrhage, does show old encephalomalacia ordered full dose aspirin as recommended by neuro re ordered 05/21/24 17:45 05/22/24 14:15 Reevaluation #5: On reassessment patient symptoms have completely resolved patient is back to baseline. Discussed plan for admission. Patient and family are comfortable and agreeable plan of care. 05/21/24 18:14 Medical Decision Making - Medical Decision Making Was pt. sent in by a medical professional or institution (, PA, DESCRIPTIVE CATALOG LIBRARIAN, urgent care, hospital, or correction...) When possible be specific @ -No Did you speak to anyone other than the patient for history (EMS, parent, family, police, friend...)? What history was obtained from this source @ -Spoke with patient's girlfriend and sister after his arrival who provided further history Did you review nursing and triage notes (agree or disagree)? Why? @ -I reviewed and agree with nursing and triage notes Were old charts reviewed (outside hosp., previous admission, EMS record, old EKG, old radiological studies, urgent care reports/EKG's, correction records)? Report findings @ Patient was most recently admitted on 08/14/22 for concerns for pyelonephritis Differential Diagnosis (chest pain, altered mental status, abdominal pain women, abdominal pain men, vaginal bleeding, weakness, fever, dyspnea, syncope, headache, dizziness, GI bleed, back pain, seizure, CVA, palpatations, mental health, musculoskeletal)? @ -Differential CVA Ischemic stroke, hemorrhagic stroke, brain tumor, atypical migraine, Wernicke's encephalopathy, seizure, multiple sclerosis, hypoglycemia,, electrolytes disturbance, myasthenia gravis.... This is not meant to be an all-inclusive list EKG interpreted by me (3pts min.). @ - Sinus rhythm, rate 70 bpm, MS interval 140 ms, QT/QTc 358/392 ms, normal axis, no ST elevations or depressions Compared to EKG performed on 08/12/2020, no significant changes CT interpreted by me (1pt min.). @ -Brain reviewed by myself, I see no evidence of hemorrhage or mass CTA Reviewed, I see no large vessel occlusion or dissection U/S interpreted by me (1pt. min.). @ -None done What testing was considered but not performed or refused? (CT, X-rays, U/S, labs)? Why? @ -None What meds were considered but not given or refused? Why? @ -tNK was considered briefly as patient was in window of 4.5 hours however not given due to low NIH and rapidly improving symptoms, also was not advised to give tNK by neurologist community relations police lieutenant, Dr. Sims Did you discuss the management of the patient with other professionals (professionals i.e. , PA, DESCRIPTIVE CATALOG LIBRARIAN, lab, RT, psych nurse, social media manager, high school physical education teacher, teacher, search and rescue officer, skilled nursing case manager)? Give summary @ -Yes, discussed with Dr. Sims Was smoking cessation discussed for >3mins.? @ -No Was critical care preformed (if so, how long)? @ -Yes, 35 minutes, spent performing exam, obtaining history from patient and surrogates, ordering and interpreting of labs and imaging, ordering interventions, re-examination of patient, discussion with consultants Were there social determinants of health that impacted care today? How? (Homelessness, low income, unemployed, alcoholism, drug addiction, transporta tion, low edu. Level, literacy, decrease access to med. care, senior care, rehab)? @ -No Was there de-escalation of care discussed even if they declined (Discuss DNR or withdrawal of care, Hospice)? DNR status @ -No What co-morbidities impacted this encounter? (DM, HTN, Smoking, COPD, CAD, Cancer, CVA, ARF, Chemo, Hep., AIDS, mental health diagnosis, sleep apnea, morbid obesity)? @ -Prior CVA Was patient admitted / discharged? Hospital course, mention meds given and route, prescriptions, significant lab abnormalities, going to OR and other pertinent info. @ -Hospital course Patient is a 58-year-old gentleman past medical history of prior CVA with left- sided deficits presenting for sudden onset slurred speech and disorientation. Started 15 minutes prior to arrival. On arrival, improving. States that he is still mildly disoriented. Not oriented to time but is oriented to place and self. Code thrombolytic called as patient in window, however low NIH (1- unsure of date, 2-baseline left upper extremity weakness, unchanged). Discussed with Dr. Sims. Recommends full dose ASA and [address]itor[address] No tNK. CT brain showed no hemorrhage. CTA signficiant for severe 80% proximal left ICA stenosis above the level of the carotid bulb. No significant LVO or aneurysm. Labs reviewed. Grossly within normal limits. Abnormal values not concerning for acute pathology related to presenting complaint. On reassessment patient returned to baseline. Discussed significant findings of workup thus far including reassuring labs and results of imaging, and plan for admission for TIA. Patient agreeable with plan of care. UDS positive for benzodiazipines, may have contributed to patient's presentation today however low suspicion for this given rapid onset and improvement of symptoms. Discussed with CIRILO Kwok, kindly accepts for admission. Undiagnosed new problem with uncertain prognosis? @ -Yes Drug Therapy requiring intensive monitoring for toxicity (Heparin, Nitro, Insulin, Cardizem)? @ -No Were any procedures done? @ -No Diagnosis/symptom? @ -TIA Acute, or Chronic, or Acute on Chronic? @ -Acute Uncomplicated (without systemic symptoms) or Complicated (systemic symptoms)? @ -Gated Side effects of treatment? @ -No Exacerbation, Progression, or Severe Exacerbation? @ -No Poses a threat to life or bodily function? How? (Chest pain, [place], [place], pneumonia, PE, COPD, DKA, ARF, appy, cholecystitis, CVA, Diverticulitis, Homicidal, Suicidal, threat to staff... and all critical care pts) @ -Yes, if allowed to progress without further workup or treatment could result in CVA which could cause buttermaker continuous churn disability and - Lab Data Result diagrams: 05/21/24 17:15 05/21/24 17:15 Lab Results 05/21/24 05/21/24 05/21/24 Range/Units 17:06 17:15 17:15 WBC 10.5 (3.8-10.6) k/uL RBC 5.70 (4.30-5.90) m/uL Hgb 15.7 (13.0-17.5) gm/dL Hct 48.4 (39.0-53.0) % MCV 85.0 (80.0-100.0) fL MCH 27.6 (25.0-35.0) pg MCHC 32.5 (31.0-37.0) g/dL RDW 13.4 (11.5-15.5) % Plt Count 373 (150-450) k/uL MPV 6.7 Neutrophils % 71 % Lymphocytes % 16 % Monocytes % 9 % Eosinophils % 2 % Basophils % 1 % Neutrophils # 7.4 (1.3-7.7) k/uL Lymphocytes # 1.7 (1.0-4.8) k/uL Monocytes # 0.9 (0-1.0) k/uL Eosinophils # 0.2 (0-0.7) k/uL Basophils # 0.1 (0-0.2) k/uL PT 10.9 (10.0-12.5) sec INR 1.0 (<1.2) APTT 25.0 (22.0-30.0) sec Sodium (137-145) mmol/L Potassium (3.5-5.1) mmol/L Chloride (98-107) mmol/L Carbon Dioxide (22-30) mmol/L Anion Gap mmol/L BUN (9-20) mg/dL Creatinine (0.66-1.25) mg/dL Est GFR (CKD-EPI)AfAm (>60 ml/min/1.73 sqM) Est GFR (CKD-EPI)NonAf (>60 ml/min/1.73 sqM) Glucose (74-99) mg/dL POC Glucose (mg/dL) 104 (70-110) mg/dL POC Glu Nurse Specialist ID April Cifuentes Calcium (8.4-10.2) mg/dL Total Bilirubin (0.2-1.3) mg/dL AST (17-59) U/L ALT (4-49) U/L Alkaline Phosphatase (38-126) U/L Creatine Kinase (55-170) U/L Troponin I (0.000-0.034) ng/mL Total Protein (6.3-8.2) g/dL Albumin (3.5-5.0) g/dL Urine Opiates Screen (NotDetected) Ur Oxycodone Screen (NotDetected) Urine Methadone Screen (NotDetected) Ur Barbiturates Screen (NotDetected) U Tricyclic Antidepress (NotDetected) Ur Phencyclidine Scrn (NotDetected) Ur Amphetamines Screen (NotDetected) U Methamphetamines Scrn (NotDetected) U Benzodiazepines Scrn (NotDetected) Urine Cocaine Screen (NotDetected) U Marijuana (THC) Screen (NotDetected) 05/21/24 05/21/24 05/21/24 Range/Units 17:15 17:15 17:49 WBC (3.8-10.6) k/uL RBC (4.30-5.90) m/uL Hgb (13.0-17.5) gm/dL Hct (39.0-53.0) % MCV (80.0-100.0) fL MCH (25.0-35.0) pg MCHC (31.0-37.0) g/dL RDW (11.5-15.5) % Plt Count (150-450) k/uL MPV Neutrophils % % Lymphocytes % % Monocytes % % Eosinophils % % Basophils % % Neutrophils # (1.3-7.7) k/uL Lymphocytes # (1.0-4.8) k/uL Monocytes # (0-1.0) k/uL Eosinophils # (0-0.7) k/uL Basophils # (0-0.2) k/uL PT (10.0-12.5) sec INR (<1.2) APTT (22.0-30.0) sec Sodium 137 (137-145) mmol/L Potassium 3.9 (3.5-5.1) mmol/L Chloride 103 (98-107) mmol/L Carbon Dioxide 25 (22-30) mmol/L Anion Gap 9 mmol/L BUN 10 (9-20) mg/dL Creatinine 1.07 (0.66-1.25) mg/dL Est GFR (CKD-EPI)AfAm >90 (>60 ml/min/1.73 sqM) Est GFR (CKD-EPI)NonAf 78 (>60 ml/min/1.73 sqM) Glucose 97 (74-99) mg/dL POC Glucose (mg/dL) (70-110) mg/dL POC Glu Nurse Specialist ID Calcium 9.4 (8.4-10.2) mg/dL Total Bilirubin 0.8 (0.2-1.3) mg/dL AST 24 (17-59) U/L ALT 19 (4-49) U/L Alkaline Phosphatase 74 (38-126) U/L Creatine Kinase 50 L (55-170) U/L Troponin I <0.012 (0.000-0.034) ng/mL Total Protein 7.5 (6.3-8.2) g/dL Albumin 4.3 (3.5-5.0) g/dL Urine Opiates Screen Not Detected (NotDetected) Ur Oxycodone Screen Not Detected (NotDetected) Urine Methadone Screen Not Detected (NotDetected) Ur Barbiturates Screen Not Detected (NotDetected) U Tricyclic Antidepress Not Detected (NotDetected) Ur Phencyclidine Scrn Not Detected (NotDetected) Ur Amphetamines Screen Not Detected (NotDetected) U Methamphetamines Scrn Not Detected (NotDetected) U Benzodiazepines Scrn Detected H (NotDetected) Urine Cocaine Screen Not Detected (NotDetected) U Marijuana (THC) Screen Not Detected (NotDetected) Critical Care Time Critical Care Time: Yes Total Critical Care Time: 35 (minutes) Critical Care Time: spent performing exam, obtaining history from patient and surrogates, ordering and interpreting of labs and imaging, ordering interventions, re-examination of patient, discussion with consultants Disposition Clinical Impression: TIA (transient ischemic attack) Disposition: ADMITTED IP TO THIS HOSP
[2024-05-21 17:17] LABS: Glucose,Whole Blood 104 mg/dL (70-110)
[2024-05-21 17:23] LABS: Basophils # (A) 0.1 k/uL (0-0.2); Basophils % (A) 1 %; Eosinophils # (A) 0.2 k/uL (0-0.7); Eosinophils % (A) 2 %; HCT 48.4 % (39.0-53.0); HGB 15.7 gm/dL (13.0-17.5); Lymphocytes # (A) 1.7 k/uL (1.0-4.8); Lymphocytes % (A) 16 %; MCH 27.6 pg (25.0-35.0); MCHC 32.5 g/dL (31.0-37.0); Mean Platelet Volume 6.7; Monocytes # (A) 0.9 k/uL (0-1.0); Monocytes % (A) 9 %; Neutrophils # (A) 7.4 k/uL (1.3-7.7); Neutrophils % (A) 71 %; Platelet Count 373 k/uL (150-450); RDW 13.4 % (11.5-15.5); WBC 10.5 k/uL (3.8-10.6)
[2024-05-21 17:35] LABS: Prothrombin Time 10.9 sec (10.0-12.5)
[2024-05-21] MEDS: ATORVASTATIN 40 MG TAB PO STA (17:36)
--- NOTE | 2024-05-21 17:44 | CT ---
EXAMINATION TYPE: CODE STROKE: CT brain wo contr DATE OF EXAM: 05/21/2024 COMPARISON: 02/08/2022 HISTORY: 58-year-old male neurologic deficit, acute, stroke suspected TECHNIQUE: Examination was done in axial plane without intravenous contrast. Coronal and sagittal r econstructions performed. CT DLP: 1217.5 mGycm Automated exposure control for dose reduction was used. FINDINGS: There is no evidence of acute intracranial hemorrhage, acute ischemic changes, mass, mass-effect, or extra-axial fluid collection. There is no effacement of cerebral sulci or basal subarachnoid cister ns. There is no hydrocephalus. There is no midline shift. Norman-white matter distinction is preserv ed. Large area of encephalomalacia right MCA territory redemonstrated. Slight ex vacuo enlargement of the right lateral ventricle is similar as well. No evidence for acute intracranial hemorrhage, acute ischemic change, mass, mass effect, midline shif t, or extra-axial fluid collection. No hydrocephalus. No effacement of cerebral sore sulci or basal s ubarachnoid cisterns. Norman-white matter differentiation is otherwise maintained. Leftward nasal septal deviation. Paranasal sinuses and mastoid air cells well pneumatized. Orbits and globes are intact. IMPRESSION: Encephalomalacia relating to previous large right MCA territory infarct. No acute intracranial abnorm ality seen.
[2024-05-21 17:53] LABS: ALT 19 U/L (4-49); AST 24 U/L (17-59); African American GFR (CKD) >90 (>60 ml/min/1.73 sqM); Albumin 4.3 g/dL (3.5-5.0); Alkaline Phosphatase 74 U/L (38-126); Anion Gap 9 mmol/L; Blood Urea Nitrogen 10 mg/dL (9-20); Calcium 9.4 mg/dL (8.4-10.2); Carbon Dioxide 25 mmol/L (22-30); Chloride 103 mmol/L (98-107); Creatine Kinase 50 U/L (55-170); Glucose 97 mg/dL (74-99); Non-African American GFR(CKD) 78 (>60 ml/min/1.73 sqM); Potassium 3.9 mmol/L (3.5-5.1); Sodium 137 mmol/L (137-145); Total Bilirubin 0.8 mg/dL (0.2-1.3); Total Protein 7.5 g/dL (6.3-8.2)
--- NOTE | 2024-05-21 17:59 | CT ---
EXAMINATION TYPE: CT angio head neck DATE OF EXAM: 05/21/2024 COMPARISON: CT brain same day HISTORY: 58-year-old male cva TECHNIQUE: Contiguous axial scanning of the had a neck performed with IV Contrast, patient injected w ith 65 mL of Isovue 370. Coronal and sagittal reconstructions performed. 3-D reconstructions generate d on a dedicated independent workstation. CT DLP: 532.7 mGycm Automated exposure control for dose reduction was used. FINDINGS: Neck: The bilateral common carotid arteries are patent as are the bifurcations. However, there is a severe, 80% stenosis proximal left ICA just above the level of the carotid bulb, axial series 401 image 78. Remainder of the bilateral internal carotid arteries are patent. The vertebral arteries are codominant and patent throughout the course. NASCET criteria was utilized. Head: The vertebral and basilar arteries as well as the remainder of the posterior circulation is patent. The bilateral internal carotid arteries and remainder of the anterior circulation is patent. Note germain t assessment of the more peripheral arterial branches is limited due to technical failure during the scan. No aneurysmal change is seen. IMPRESSION: HEAD: 1. NOTE THAT THE MORE PERIPHERAL BRANCHES OF BOTH ANTERIOR AND POSTERIOR CIRCULATION ARE NONDIAGNOSTI C DUE TO TECHNICAL FAILURE DURING THE SCAN. NO LARGE VESSEL INTRACRANIAL ARTERIAL OCCLUSION OR SIGNIF ICANT STENOSIS AT THE [place] TO THE SECOND SEGMENTAL LEVEL. NO ANEURYSMAL CHANGE IS SEEN. NECK: 2. SEVERE, 80% PROXIMAL LEFT ICA STENOSIS ABOVE THE LEVEL OF THE CAROTID BULB.
[2024-05-21 18:08] LABS: Amphetamine Screen,Urine Not Detected (NotDetected); Barbiturate Screen,Urine Not Detected (NotDetected); Benzodiazepines Screen,Urine Detected (NotDetected); Cocaine Screen,Urine Not Detected (NotDetected); Methadone Screen, Urine Not Detected (NotDetected); Opiate Screen,Urine Not Detected (NotDetected); Oxycodone Screen, Urine Not Detected (NotDetected); Phencyclidine Screen,Urine Not Detected (NotDetected); Tricyclic Antidepressant,Urine Not Detected (NotDetected); Urn Cannabinoid Scrn Not Detected (NotDetected)
[2024-05-21] MEDS: ASPIRIN 325 MG TAB PO STA ×2 (18:09→18:55)
--- NOTE | 2024-05-21 19:36 | XR ---
EXAMINATION TYPE: XR chest 2V DATE OF EXAM: 05/21/2024 COMPARISON: None HISTORY: 58-year-old male confusion, altered mental status TECHNIQUE: PA and lateral views FINDINGS: Heart normal size. Some central peribronchial cuffing. Bilateral scrotal cartilage calcifications. [place] atelectasis at the left base. No consolidation or pleural effusion. IMPRESSION: Some central peribronchial cuffing could reflect bronchitis or asthma. Some strandy areas of atelecta sis are also present. Otherwise, no definite acute process.
[2024-05-21] MEDS ORDERED: NALOXONE 0.4 MG/ML 1 ML VIAL IV PRN (19:45)
[2024-05-21] MEDS ORDERED: ACETAMINOPHEN TAB 325 MG TAB PO PRN (19:45)
[2024-05-21] MEDS: ALPRAZolam 0.5 MG TAB PO SCH (20:48)
[2024-05-21] MEDS: BACLOFEN 10 MG TAB PO SCH (20:48)
[2024-05-22] MEDS: ESCITALOPRAM 20 MG TAB PO SCH (08:49)
[2024-05-22] MEDS: ARIPiprazole 2 MG TAB PO SCH (08:49)
--- NOTE | 2024-05-22 12:31 | P.HPIM ---
History of Present Illness 58-year-old male came in with complaints of slurred speech and disorientation all of the symptoms resolved at this time. Patient symptoms lasted for 15 minutes and resolved before arrival to ER. Patient had history of spontaneous intracranial hemorrhage in the past with residual weakness and contractures on the left side along with facial droop. Patient denies any headache numbness weakness. Patient had a CT of the head which showed encephalomalacia from his previous and hemorrhagic stroke, carotid Doppler showed 80% occlusion in the left carotid bulb. Patient is admitted for workup for TIA/cerebrovascular accident REVIEW OF SYSTEMS: All other systems are negative except those mentioned in the HPI PHYSICAL EXAMINATION: GENERAL: The patient is alert and oriented x3, not in any acute distress. Well developed, well nourished. HEENT: Pupils are round and equally reacting to light. EOMI. No scleral icterus. No conjunctival pallor. Normocephalic, atraumatic. No pharyngeal erythema. No thyromegaly. CARDIOVASCULAR: S1 and S2 present. No murmurs, rubs, or gallops. PULMONARY: Chest is clear to auscultation, no wheezing or crackles. ABDOMEN: Soft, nontender, nondistended, normoactive bowel sounds. No palpable organomegaly. MUSCULOSKELETAL: No joint swelling or deformity. EXTREMITIES: No cyanosis, clubbing, or pedal edema. NEUROLOGICAL: Gross neurological examination did not reveal any new focal deficits. Chronic weakness and contractures on the left side no other focal weakness SKIN: No rashes. Assessment and plan -TIA/cerebrovascular accident patient will undergo workup with echocardiogram patient is started on antiplatelet therapy, neurology will evaluate patient patient is also on statin. -History of hemorrhagic stroke in the past -Bipolar disorder -Depression -Hyperlipidemia Problem mentioned chronic medical problems patient will be resumed on appropriate home medications DVT prophylaxis: Ambulation Past Medical History Past Medical History: CVA/TIA Additional Past Medical History / Comment(s): left side deficits from cva History of Any Multi-Drug Resistant Organisms: None Reported Additional Past Surgical History / Comment(s): pins in thumb Past Psychological History: No Psychological Hx Reported Smoking Status: Never smoker Past Alcohol Use History: Occasional Past Drug Use History: None Reported Medications and Allergies Home Medications Medication Instructions Recorded Confirmed Type Baclofen 5 mg PO HS 01/06/05/21/24 History ALPRAZolam [Xanax] 0.5 mg PO DAILY PRN 08/12/22 05/21/24 History ARIPiprazole [Abilify] 2 mg PO DAILY 08/12/22 05/21/24 History Escitalopram [Lexapro] 20 mg PO DAILY 08/12/22 05/21/24 History ALPRAZolam [Xanax] 0.5 mg PO HS 05/21/24 05/21/24 History Allergies Allergy/AdvReac Type Severity Reaction Status Date / Time No Known Allergies Allergy Verified 05/21/24 17:38 Physical Exam Vitals: Vital Signs Temp Pulse Resp BP Pulse Ox 05/22/24 08:42 98.0 F 73 18 121/81 97 05/22/24 05:27 97.8 F 64 15 116/84 96 05/21/24 23:41 97.8 F 66 16 116/85 96 05/21/24 20:45 58 L 15 126/84 95 05/21/24 18:50 66 122/81 05/21/24 18:40 65 122/81 05/21/24 18:30 67 116/80 05/21/24 18:20 64 116/80 05/21/24 18:10 64 116/80 05/21/24 18:00 128/80 05/21/24 17:50 128/80 05/21/24 17:40 128/80 05/21/24 17:30 128/87 05/21/24 17:00 121/89 05/21/24 16:56 118/100 05/21/24 16:40 97.9 F 85 18 126/88 98 Intake and Output 05/21/24 05/22/24 05/22/24 22:59 06:59 14:59 Output Total 70 Balance -70 Output: Urine 70 Other: # Voids 1 Weight 77.111 kg Results CBC & Chem 7: 05/21/24 17:15 05/21/24 17:15 Labs: Abnormal Lab Results - Last 24 Hours (Table) 05/21/24 05/21/24 Range/Units 17:15 17:49 Creatine Kinase 50 L (55-170) U/L U Benzodiazepines Scrn Detected H (NotDetected)
[2024-05-22] MEDS: ASPIRIN 81 MG PO SCH (12:55)
[2024-05-22] MEDS: CLOPIDOGREL 75 MG TAB PO SCH (12:55)
--- NOTE | 2024-05-22 13:38 | P.CNNES ---
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 Patient is accompanied wi th his girlfriend and some of the history is also obtained from his sister via phone. It seems that yesterday around 430 to 5:00 PM he had an episode in which he was slurring his speech and was confused he did not know where he was at he was drooling and he had inappropriate laughter per the girlfriend. Patient was putting to the hospital so the girlfriend can send him there. His episode was brief and per his girlfriend lasted for few minutes up to 15 minutes. He did not have any loss of consciousness. No jerking of any extremity. No urinary or bowel incontinence or tongue bite. No new focal weakness. Patient is not on any antiplatelet or antiseizure medication. Regarding his old stroke he had a stroke over the right hemisphere and he and the stroke was in 2020 while he was residing in [place] and it seems he had a bleed and denies ever being on any antiplatelet or anticoagulation or at head trauma that led to the bleed. He had workup when he was hospitalized and last when they did not know the cause of the bleed. There is no family history of brain aneurysm. Patient was not on any illicit drug use judgment during that time. Again unknown cause of the stroke. As a result his sister brought him to [place] and he had therapy. He stated that he followed up with a neurologist in [facility] but unknown the exact details. He continues to have worse weakness in the left upper extremity than the lower with spasticity and he is on baclofen. Some of the workup during this hospital visit consisted of: CBC with differential is unremarkable Chemistry panel seems unremarkable CT of the head is reported as encephalomalacia relating to the previous large right MCA territory infarct. No acute intracranial abnormality seen. I personally reviewed the CT and I agree with the report. CT angiography of the neck is reported as severe 80% proximal left ICA stenosis above the level of carotid bulb. CT angiography of the head is reported as note that more peripheral branches of both anterior and posterior circulation are nondiagnostic due to technical failure during the scan. No large vessel intracranial arterial occlusion or significant stenosis at the [place] to the second segment level. No aneurysm changes seen. Review of Systems The positive and negative as per HPI. Past Medical History Past Medical History: CVA/TIA Additional Past Medical History / Comment(s): left side deficits from cva History of Any Multi-Drug Resistant Organisms: None Reported Additional Past Surgical History / Comment(s): pins in thumb Past Psychological History: No Psychological Hx Reported Smoking Status: Never smoker Past Alcohol Use History: Occasional Past Drug Use History: None Reported Medications and Allergies Home Medications Medication Instructions Recorded Confirmed Type Baclofen 5 mg PO HS 01/06/22 05/21/24 History ALPRAZolam [Xanax] 0.5 mg PO DAILY PRN 08/12/22 05/21/24 History ARIPiprazole [Abilify] 2 mg PO DAILY 08/12/22 05/21/24 History Escitalopram [Lexapro] 20 mg PO DAILY 08/12/22 05/21/24 History ALPRAZolam [Xanax] 0.5 mg PO HS 05/21/24 05/21/24 History Allergies Allergy/AdvReac Type Severity Reaction Status Date / Time No Known Allergies Allergy Verified 05/21/24 17:38 Physical Examination - Vital Signs Vital Signs: Vital Signs Temp Pulse Resp BP Pulse Ox 05/22/24 12:54 74 20 124/79 95 05/22/24 08:42 98.0 F 73 18 121/81 97 05/22/24 05:27 97.8 F 64 15 116/84 96 05/21/24 23:41 97.8 F 66 16 116/85 96 05/21/24 20:45 58 L 15 126/84 95 05/21/24 18:50 66 122/81 05/21/24 18:40 65 122/81 05/21/24 18:30 67 116/80 05/21/24 18:20 64 116/80 05/21/24 18:10 64 116/80 05/21/24 18:00 128/80 05/21/24 17:50 128/80 05/21/24 17:40 128/80 05/21/24 17:30 128/87 05/21/24 17:00 121/89 05/21/24 16:56 118/100 05/21/24 16:40 97.9 F 85 18 126/88 98 Intake and Output 05/21/24 05/22/24 05/22/24 22:59 06:59 14:59 Output Total 70 Balance -70 Output: Urine 70 Other: # Voids 1 Weight 77.111 kg GENERAL: The patient is lying in bed and is not in acute distress. NEUROLOGICAL: Higher mental function: The patient is awake, alert, oriented to self, place and time. Patient is following commands. No aphasia and no neglect. Cranial nerves: The pupils are round, equal and reactive to light and accommodation. Visual saleh are full to confrontation throughout. Extraocular movement is intact no nystagmus is noted. Facial sensation is normal to touch throughout. The facial strength is subtle left nasolabial flattening (old). Hearing is normal bilaterally to hand rub. Tongue is midline and moved [id number] without any difficulty. No dysarthria is noted. Motor: The strength is significant left upper extremity weakness but was able to bend forearm otherwise rest of left upper extremity is weakness and has increase tone. Left lower extremity is weak distally and has 3 while proximally is 5/5. Right side is 5/5. Cerebellum: Normal finger to nose on right and unable to perform left since weak. Sensation: Sensation is normal to touch throughout. Reflexes (right/left): Biceps 2+/3+; triceps 2+/3+; brachioradialis 2+/2+; patellar 2+/2+; ankles 2+/2+. Plantars is upgoing over the left and mute on right. Results - Laboratory Findings CBC and BMP: 05/21/24 17:15 05/21/24 17:15 Abnormal Lab Findings: Abnormal Labs 05/21/24 05/21/24 17:15 17:49 Creatine Kinase 50 L U Benzodiazepines Scrn Detected H Assessment and Plan Assessment: This is a 58-year-old gentleman who had hemorrhagic right MCA stroke in 2020 while he was residing in [place] and had workup and unknown cause with residual left hemiparesis) upper worse than lower had a transient episode of confusion, slurred speech and per girlfriend he was drooling and had a strange laugh and it was a brief episode. CT angiography shows left ICA 80% stenosis. Transient episode of confusion with inappropriate left and dysarthria: Rule out TIA versus seizure especially with old history of stroke that can cause cortical irritability to the brain Left ICA stenosis of 80% History of hemorrhagic right MCA stroke with residual left hemiparesis worse on the upper than the lower Plan: I ordered MRI of the brain, lipid panel, 2D echo Ordered routine EEG because of his episodes of confusion to rule out any active seizure or any discharges. Patient has further episodes of confusion then will start the patient on antiepileptic drugs, Keppra 500mg bid. Order TSH, hemoglobin A1c I started the patient on aspirin 81 mg and Plavix 75 mg daily. Prior to this the patient was not on any antiplatelet. In the ED the patient was given aspirin 325 mg. I also started the patient on Lipitor 80 mg nightly for secondary stroke prophylaxis and that helps stabilize carotid plaque. In the ED the patient was given Lipitor 40 mg once Recommend permissive hypertension for 24 to 48 hours. Every 4 hours neurochecks Cardiac monitoring Consulted PT OT and PARK MANAGER Will defer the rest of the medical management the primary team and other specialist For DVT prophylaxis I started the patient on subcu heparin 5000 units every 12 hours. The plan discussed with the patient, his girlfriend who is at bedside and his sister via phone. I also discussed the case with's ED nurse. Thank you for the consultation. Time with Patient: Greater than 30
[2024-05-22] MEDS: ATORVASTATIN 80 MG TAB PO SCH (20:32)
[2024-05-22] MEDS: HEPARIN SODIUM,PORCINE 5,000 UNIT/ML 1 ML VIAL SQ SCH (20:32)
[2024-05-23 06:54] LABS: Chol/HDL Ratio 4.48 Ratio; LDL Cholesterol,Calculated 112.2 mg/dL (0.0-131.0); VLDL Calculation 14.38 mg/dL (5.00-40.00)
--- NOTE | 2024-05-23 10:35 | CA ---
Transthoracic Echo Report Name: Leon Ortiz Age: 58 Gender: M : 1965 Exam Date: 05/22/2024 14:14 Exam Location: [facility] Ht (in): 66 Wt (lb): 170 Ordering Physician: Maksim Tristan MD Attending/Referring Phys: Diversional Therapist'S Assistant Carey Pedraza RDCS Procedure CPT: Indications: STROKE. BUBBLE STUDY Cardiac Hx: Stroke Technical Quality: Fair Contrast 1: Agitated Saline Total Dose (mL): Contrast 2: Total Dose (mL): MEASUREMENTS (Male / Female) Normal Values 2D ECHO LV Diastolic Diameter PLAX 4.0 cm 4.2 - 5.9 / 3.9 - 5.3 cm LV Systolic Diameter PLAX 2.8 cm IVS Diastolic Thickness 1.0 cm 0.6 - 1.0 / 0.6 - 0.9 cm LVPW Diastolic Thickness 1.2 cm 0.6 - 1.0 / 0.6 - 0.9 cm LV Relative Wall Thickness 0.5 RV Internal Dim ED PLAX 1.7 cm LA Systolic Diameter LX 3.1 cm 3.0 - 4.0 / 2.7 - 3.8 cm LV Diastolic Volume MOD BP 55.4 cm??? 67 - 155 / 56 - 104 cm??? LV Systolic Volume MOD BP 20.2 cm??? 22 - 58 / 19 - 49 cm??? LV Ejection Fraction MOD BP 63.6 % >= 55 % LV Cardiac Index MOD BP 1362.0 cm???/min???m??? LV Diastolic Volume MOD 4C 57.9 cm??? LV Systolic Volume MOD 4C 20.2 cm??? LV Ejection Fraction MOD 4C 65.0 % LV Cardiac Index MOD 4C 1456.1 cm???/min???m??? LV Diastolic Length 4C 6.9 cm LV Systolic Length 4C 5.8 cm LV Diastolic Volume MOD 2C 50.7 cm??? LV Systolic Volume MOD 2C 19.5 cm??? LV Ejection Fraction MOD 2C 61.4 % LV Cardiac Index MOD 2C 1204.2 cm???/min???m??? LV Diastolic Length 2C 7.3 cm LV Systolic Length 2C 6.3 cm LA Volume 57.3 cm??? 18 - 58 / 22 - 52 cm??? LA Volume Index 29.9 cm???/m??? 16 - 28 cm???/m??? M-MODE Aortic Root Diameter MM 3.3 cm LA Systolic Diameter MM 3.6 cm LA Ao Ratio MM 1.1 AV Cusp Separation MM 2.2 cm DOPPLER MV Area PHT 2.7 cm??? Mitral E Point Velocity 58.1 cm/s Mitral A Point Velocity 66.1 cm/s Mitral E to A Ratio 0.9 MV Deceleration Time 278.7 ms TR Peak Velocity 217.3 cm/s TR Peak Gradient 18.9 mmHg Right Ventricular Systolic Press 23.7 mmHg FINDINGS Left Ventricle Left ventricular ejection fraction is estimated at 55-60%. Normal left ventricular wall motion. No obvious regional wall motion abnormalities. Left ventricular cavity size normal. Right Ventricle Normal right ventricular size and function. Right ventricular systolic pressure within normal limits. Right Atrium Normal right atrial size. Negative agitated saline bubble study for right to left shunt. Left Atrium Mildly increased left atrial volume. Mitral Valve Structurally normal mitral valve. Trace mitral regurgitation. Aortic Valve Trileaflet aortic valve. No aortic valve stenosis or regurgitation. Tricuspid Valve Structurally normal tricuspid valve. Trace tricuspid regurgitation. Pulmonic Valve Structurally normal pulmonic valve. No pulmonic regurgitation.no pulmonic stenosis. Pericardium No pericardial effusion. Aorta Normal size aortic root and proximal ascending aorta. CONCLUSIONS Left ventricular ejection fraction is estimated at 55-60%. No obvious regional wall motion abnormalities. Normal right ventricular size and function. No significant valve pathology No evidence of right to left intracardiac shunting on bubble study however poor quality. If clinically indicated., consider o/p ESTELLA with bubble study Previewed by: Dr Syd Walters (Electronically Signed) Final Date: 23 May 2024 10:34
--- NOTE | 2024-05-23 11:19 | P.GSCN ---
History of Present Illness Consult date: 05/23/24 Reason for Consult: CVA, carotid stenosis History of present illness: 58-year-old gentleman with history of CVA in 2020 which was due to atrial lead and left him with left-sided upper and lower extremity weakness presented to the hospital secondary to new onset of slurred speech and disorientation. Per his girlfriend he was slurring his speech and difficult to understand around 4:35 PM and was drooling from his left side. States the episode only lasted roughly 15 minutes. He denies any right-sided upper or lower extremity weakness. He denies any fevers, chills, chest pain or shortness of breath. He states today he is still having some residual speech issues but it is definitely better. Review of Systems All systems: negative (What is mentioned in the HPI or past medical history) Past Medical History Past Medical History: CVA/TIA Additional Past Medical History / Comment(s): left side deficits from cva; restless leg syndrome; anxiety. History of Any Multi-Drug Resistant Organisms: None Reported Additional Past Surgical History / Comment(s): pins in thumb removed Past Anesthesia/Blood Transfusion Reactions: No Reported Reaction Past Psychological History: No Psychological Hx Reported Smoking Status: Never smoker Past Alcohol Use History: Occasional Past Drug Use History: None Reported Medications and Allergies Home Medications Medication Instructions Recorded Confirmed Type Baclofen 5 mg PO HS 01/06/22 05/21/24 History ALPRAZolam [Xanax] 0.5 mg PO DAILY PRN 08/12/22 05/21/24 History ARIPiprazole [Abilify] 2 mg PO DAILY 08/12/22 05/21/24 History Escitalopram [Lexapro] 20 mg PO DAILY 08/12/22 05/21/24 History ALPRAZolam [Xanax] 0.5 mg PO HS 05/21/24 05/21/24 History Allergies Allergy/AdvReac Type Severity Reaction Status Date / Time No Known Allergies Allergy Verified 05/21/24 17:38 Surgical - Exam Vital Signs Temp Pulse Resp BP Pulse Ox 97.9 F 85 18 126/88 98 05/21/24 16:40 05/21/24 16:40 05/21/24 16:40 05/21/24 16:40 05/21/24 16:40 Patient Seen Date: 05/23/24 Patient Seen Time: 10:45 - General well developed, well nourished, no distress - Eyes PERRL, normal ocular movement - ENT normal pinna, normal nares - Neck no masses - Respiratory normal expansion, normal respiratory effort - Cardiovascular Rhythm: regular - Abdomen Abdomen: soft, non tender - Neurologic Pupils equal round reactive to light. Extraocular muscles intact. Slight facial weakness on the left. Right upper and lower extremity 5 out of 5 muscle strength. Left upper and lower extremity weakness, 3 out of 5. Speech is slurred - Psychiatric oriented to time, oriented to person, oriented to place Results - Labs 05/21/24 17:15 05/21/24 17:15 Abnormal Lab Results - Last 24 Hours (Table) 05/22/24 Range/Units 12:16 HDL Cholesterol 36.40 L (40.00-60.00) mg/dL Diabetes panel 05/21/24 05/22/24 Range/Units 17:15 12:16 Hemoglobin A1c 5.7 (<=6.0) % Triglycerides 71.90 (0.00-149.00) mg/dL HDL Cholesterol 36.40 L (40.00-60.00) mg/dL Thyroid panel 05/22/24 Range/Units 12:16 TSH 1.650 (0.465-4.680) mIU/L Pituitary panel 05/22/24 Range/Units 12:16 TSH 1.650 (0.465-4.680) mIU/L Assessment and Plan Assessment: Left-sided carotid stenosis Dysarthria Possible TIA, CVA History of hemorrhagic right MCA stroke with residual left hemiparesis Plan: Reviewed CTA with the patient in full detail which does demonstrate left ICA stenosis greater than 80%. Will obtain carotid Doppler to look at morphology of the plaque. Agree with neurology and aspirin and Plavix. Await MRI results. If stroke is determined and to be from the left internal carotid artery stenosis he will need intervention either TCAR versus carotid endarterectomy and patch angioplasty within the next 2 weeks. Thank you for the consultation. Further recommendations to follow after MRI.
--- NOTE | 2024-05-23 11:42 | P.PN ---
Subjective Progress Note Date: 05/23/24 I am following up with the patient and patient feels she is back to baseline and no further episodes of confusion slurred speech or inappropriate laughter. Objective - Vital Signs Vital signs: Vital Signs Temp 98.1 F 05/23/24 04:00 Pulse 85 05/23/24 08:56 Resp 16 05/23/24 08:56 BP 115/79 05/23/24 08:56 Pulse Ox 93 L 05/23/24 08:56 FiO2 Intake & Output 05/22/24 05/23/24 05/23/24 18:59 06:59 18:59 Intake Total 1080 118 Output Total 100 Balance 980 118 Weight 82.2 kg Intake: Oral 1080 118 Output: Urine 100 Other: Voiding Method Urinal Urinal Diaper Diaper # Voids 2 - Exam GENERAL: The patient is lying in bed and is not in acute distress. NEUROLOGICAL: Higher mental function: The patient is awake, alert, oriented to self, place and time. Patient is following commands. No aphasia and no neglect. Cranial nerves: The pupils are round, equal and reactive to light and accommodation. Visual saleh are full to confrontation throughout. Extraocular movement is intact no nystagmus is noted. Facial sensation is normal to touch throughout. The facial strength is subtle left nasolabial flattening (old). Hearing is normal bilaterally to hand rub. Tongue is midline and moved [id number] without any difficulty. No dysarthria is noted. Motor: The strength is significant left upper extremity weakness but was able to bend forearm otherwise rest of left upper extremity is weakness and has increase tone. Left lower extremity is weak distally and has 3 while proximally is 5/5. Right side is 5/5. Cerebellum: Normal finger to nose on right and unable to perform left since weak. Sensation: Sensation is normal to touch throughout. Reflexes (right/left): Biceps 2+/3+; triceps 2+/3+; brachioradialis 2+/2+; patellar 2+/2+; ankles 2+/2+. Plantars is upgoing over the left and mute on right. Some of the workup during this hospital visit consisted of: Hemoglobin A1c is 5.7 Lipid panel is triglyceride 71, cholesterol is 163, LDL is 112 and HDL is 36 TSH is 1.650 Urine drug screen is positive for benzo 2D echo reported as left ventricular ejection fraction of 55 to 60%. No obvious regional wall motion abnormality. Normal right ventricular size and function. No significant valve pathology. No evidence of right to left intracardiac shunting on bubble study however poor quality CT of the head is reported as encephalomalacia relating to the previous large right MCA territory infarct. No acute intracranial abnormality seen. I personally reviewed the CT and I agree with the report. CT angiography of the neck is reported as severe 80% proximal left ICA stenosis above the level of carotid bulb. CT angiography of the head is reported as note that more peripheral branches of both anterior and posterior circulation are nondiagnostic due to technical failure during the scan. No large vessel intracranial arterial occlusion or significant stenosis at the [place] to the second segment level. No aneurysm changes seen. - Labs CBC & Chem 7: 05/21/24 17:15 05/21/24 17:15 Labs: Abnormal Lab Results - Last 24 Hours (Table) 05/22/24 Range/Units 12:16 HDL Cholesterol 36.40 L (40.00-60.00) mg/dL Assessment and Plan Assessment: This is a 58-year-old gentleman who had hemorrhagic right MCA stroke in 2020 while he was residing in [place] and had workup and unknown cause with residual left hemiparesis) upper worse than lower had a transient episode of confusion, slurred speech and per girlfriend he was drooling and had a strange laugh and it was a brief episode. CT angiography shows left ICA 80% stenosis. Transient episode of confusion with inappropriate left and dysarthria: Rule out TIA versus seizure especially with old history of stroke that can cause cortical irritability to the brain Left ICA stenosis of 80% History of hemorrhagic right MCA stroke with residual left hemiparesis worse on the upper than the lower Plan: Pending MRI of the brain. Pending routine EEG because of his episodes of confusion to rule out any active seizure or any discharges. If patient has any further episodes of confusion then will start the patient on antiepileptic drugs, Keppra 500mg bid for seizure concern. I started the patient on aspirin 81 mg and Plavix 75 mg daily. Prior to this the patient was not on any antiplatelet. I also started the patient on Lipitor 80 mg nightly for secondary stroke prophylaxis and that helps stabilize carotid plaque. Recommend permissive hypertension for next 24 hours. Vascular surgery is consulted for left ICA stenosis. Every 4 hours neurochecks Cardiac monitoring Consulted PT OT and DRIVER SALESMAN Will defer the rest of the medical management the primary team and other specialist For DVT prophylaxisOn subcu heparin 5000 units every 12 hours. The plan discussed with the patient and his nurse. Dr. Galeano will resume neurology serrice tomorrow A.M. Time with Patient: Less than 30
[2024-05-23] MEDS: CALCIUM CARBONATE 500 MG CHEWABLE PO PRN (14:34)
--- NOTE | 2024-05-23 16:08 | P.PN ---
Subjective Progress Note Date: 05/23/24 58-year-old male came in with complaints of slurred speech and disorientation all of the symptoms resolved at this time. Patient symptoms lasted for 15 minutes and resolved before arrival to ER. Patient had history of spontaneous intracranial hemorrhage in the past with residual weakness and contractures on the left side along with facial droop. Patient denies any headache numbness weakness. Patient had a CT of the head which showed encephalomalacia from his previous and hemorrhagic stroke, carotid Doppler showed 80% occlusion in the left carotid bulb. Patient is admitted for workup for TIA/cerebrovascular accident 05/23/2024 Patient is evaluated today in follow-up on the medical floor. He is having no acute complaints overnight and feels like he is back to his baseline. Patient is being worked up for stroke. He was seen in consultation by vascular services secondary to the 80% stenosis of the left carotid bulb. Echocardiogram reveals an EF of 55 to 60% poor quality of the bubble study however was negative. Review of Systems Constitutional: Denied any fatigue denied any fever. Cardio vascular: denied any chest pain, palpitations Gastrointestinal: denied any nausea, vomiting, diarrhea Pulmonary: Denied any shortness of breath cough Neurologic denied any new focal deficits All inpatient medications were reviewed and appropriate changes in these medications as dictated in the interval history and assessment and plan. PHYSICAL EXAMINATION: GENERAL: The patient is alert and oriented x3, not in any acute distress. Well developed, well nourished. HEENT: Pupils are round and equally reacting to light. EOMI. No scleral icterus. No conjunctival pallor. Normocephalic, atraumatic. No pharyngeal erythema. No thyromegaly. CARDIOVASCULAR: S1 and S2 present. No murmurs, rubs, or gallops. PULMONARY: Chest is clear to auscultation, no wheezing or crackles. ABDOMEN: Soft, nontender, nondistended, normoactive bowel sounds. No palpable organomegaly. MUSCULOSKELETAL: No joint swelling or deformity. EXTREMITIES: No cyanosis, clubbing, or pedal edema. NEUROLOGICAL: Gross neurological examination did not reveal any new focal deficits. Chronic weakness and contractures on the left side no other focal weakness SKIN: No rashes. Assessment and plan -TIA/cerebrovascular accident patient will undergo workup -Carotid stenosis of the left carotid Doppler has been ordered for further evaluation patient continues on aspirin and Plavix -History of hemorrhagic stroke in the past -Bipolar disorder -Depression -Hyperlipidemia Problem mentioned chronic medical problems patient will be resumed on appropriate home medications DVT prophylaxis: Ambulation Plan He continues on aspirin and Plavix therapy for primary stroke prevention. Vascular surgery is recommending a carotid Doppler to further evaluate the plaque of the left carotid and recommending that if there is significant stenosis patient will need a TCAR versus carotid endarterectomy and patch angioplasty within the next 2 weeks. Patient is scheduled to undergo brain MRI tomorrow. The impression and plan of care has been dictated by Blanca Pedraza Nurse Practitioner as directed. Dr. Hector MD I have performed a history and physical examination and medical decision making of this patient, discussed the same with the dictator, and agree with the dictators assessment and plan as written, documented as a scribe. Based on total visit time, I have performed more than 50% of this visit. Objective - Vital Signs Vital signs: Vital Signs Temp 98.1 F 05/23/24 04:00 Pulse 85 05/23/24 08:56 Resp 16 05/23/24 08:56 BP 115/79 05/23/24 08:56 Pulse Ox 93 L 05/23/24 08:56 FiO2 Intake & Output 05/22/24 05/23/24 05/23/24 18:59 06:59 18:59 Intake Total 1080 118 Output Total 100 Balance 980 118 Weight 82.2 kg Intake: Oral 1080 118 Output: Urine 100 Other: Voiding Method Urinal Diaper # Voids 2 - Labs CBC & Chem 7: 05/21/24 17:15 05/21/24 17:15 Labs: Abnormal Lab Results - Last 24 Hours (Table) 05/22/24 Range/Units 12:16 HDL Cholesterol 36.40 L (40.00-60.00) mg/dL Assessment and Plan Time with Patient: Less than 30
[2024-05-23 19:58] VITALS: RESP 16
[2024-05-24 03:25] VITALS: BP 110/72; PULSE 68; TEMP 98.1
== END 2024-05-25 18:19 | disposition home or self-care (01) | DRG 69 ==
LOC: EC 16:39 → 3SCARD 19:49
PROVIDERS: ADMIT Hospitalist; ATTEND Hospitalist
DX: G45.9 Transient cerebral ischemic attack, unspecified (principal); I69.354 Hemiplegia and hemiparesis following cerebral infarction affecting left non-dominant side; R41.82 Altered mental status, unspecified; F31.9 Bipolar disorder, unspecified; E78.5 Hyperlipidemia, unspecified; I65.22 Occlusion and stenosis of left carotid artery; R47.1 Dysarthria and anarthria; G25.81 Restless legs syndrome; Z79.899 Other long term (current) drug therapy
CPT/HCPCS: 36415; 70450; 70496; 70498; 71046; 80053; 80061; 80306; 82550; 83036; 84443; 84484; 85025; 85610; 85730; 93005; 93306; 99291

== ENCOUNTER 2024-07-06 06:06 | Day surgery (SDC) | payer MEDICARE, OTHER ==
[2024-07-06 06:36] LABS: Basophils # (A) 0.1 k/uL (0-0.2); Basophils % (A) 1 %; Eosinophils # (A) 0.3 k/uL (0-0.7); Eosinophils % (A) 3 %; HCT 47.5 % (39.0-53.0); HGB 15.1 gm/dL (13.0-17.5); Lymphocytes # (A) 1.7 k/uL (1.0-4.8); Lymphocytes % (A) 18 %; MCH 27.1 pg (25.0-35.0); MCHC 31.8 g/dL (31.0-37.0); MCV 85.1 fL (80.0-100.0); Mean Platelet Volume 6.7; Monocytes # (A) 0.7 k/uL (0-1.0); Monocytes % (A) 8 %; Neutrophils # (A) 6.2 k/uL (1.3-7.7); Neutrophils % (A) 68 %; Platelet Count 346 k/uL (150-450); RBC 5.58 m/uL (4.30-5.90); RDW 13.6 % (11.5-15.5); WBC 9.1 k/uL (3.8-10.6)
[2024-07-06 06:49] LABS: African American GFR (CKD) 77 (>60 ml/min/1.73 sqM); Anion Gap 6 mmol/L; Blood Urea Nitrogen 11 mg/dL (9-20); Calcium 9.4 mg/dL (8.4-10.2); Carbon Dioxide 30 mmol/L (22-30); Chloride 102 mmol/L (98-107); Glucose 82 mg/dL (74-99); Non-African American GFR(CKD) 67 (>60 ml/min/1.73 sqM); Sodium 138 mmol/L (137-145)
[2024-07-06 06:51] VITALS: RESP 18; TEMP 98.2
[2024-07-06] MEDS: IV FLUID CONTINUATION 1,000 ML IV ONE (06:51)
[2024-07-06] MEDS: SODIUM CHLORIDE 0.9% 1,000 ML IV SCH (06:51)
[2024-07-06] MEDS: MIDAZOLAM 2 MG/2 ML VIAL IVP ONE (07:28)
[2024-07-06] MEDS: fentaNYL (PF) 50 MCG/ML 2 ML AMP IVP ONE (07:32)
[2024-07-06] MEDS: LIDOCAINE 1% INJ 10MG/ML (20 ML MDV) SQ ONE (07:33)
[2024-07-06] MEDS: VERAPAMIL 2.5 MG/ML 2 ML AMP INTRAARTER ONE (07:35)
[2024-07-06] MEDS: NITROGLYCERIN 1000MCG/10ML SYRINGE INTRAARTER ONE (07:35)
[2024-07-06] MEDS: IOPAMIDOL-370 125ML BTL INJ ONE (08:09)
--- NOTE | 2024-07-06 09:10 | IR ---
Fluoroscopy INDICATION: Previous stroke FINDINGS: Fluoroscopy time: 10.4 minutes. Total dose area product (DAP) in uGy*m?, mGy*cm? (or similar): 28.2 Images obtained: 83. There is three-vessel arch. Obvious stenosis at the carotid bifurcations are identified. Vertebral ar teries are codominant. IMPRESSION: 1. Documentation of fluoroscopy. [facility], , 07/06/2024 9:07 AM
[2024-07-06 10:07] VITALS: PULSE 61
--- NOTE | 2024-07-06 11:22 | P.OP ---
Date of Procedure: 07/06/24 Description of Procedure: Preoperative diagnosis: Carotid stenosis, discordance on imaging Postoperative diagnosis: Same Procedure: Ultrasound-guided right radial artery access Aortic arch angiogram Selective left carotid angiogram Moderate conscious sedation with personal monitoring certified RN administration and personal hemodynamic monitoring for 38 minutes Surgeon: Colette Fatima D.O. EBL: Less than 5 cc IV fluids: See records Urine output: Not measured Drains: None Complications: None immediately apparent Condition: Stable to recovery Operative indication and findings: Patient is 58 a-year-old with peripheral vascular disease. 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 On workup and imaging for this he was found to have left carotid stenosis on CT scan high- grade. On the ultrasound it showed less than 50%. Due to this he presents today for discordance and evaluation for discussions regarding ongoing care. Risks and benefits including but not limited to bleeding, infection, injury to the vessel, stroke, cardiopulmonary risks and ischemic changes to the extremities were discussed. They seemingly understood this willing to proceed. Procedure in detail: Patient was taken to the special suite and placed in supine position. The right upper extremity was prepped and draped in usual sterile fashion. A preprocedural timeout was performed, all parties were in agreement. Using the ultrasound, the radial artery was identified. The skin overlying was anesthetized with 1% lidocaine plain. The artery was patent without significant calcific disease and a permanent image was stored. Under direct visualization, the artery was accessed and Seldinger technique was used to place a 5 slender sheath. Catheters and wires were then used to selectively place a catheter across the subclavian, into the aortic arch. Arch aortogram was performed. Using catheters and wires, the left carotid was selectively cannulated and image was obtained. After satisfactory images, catheters and wires were removed. The sheath was removed and a TR band was placed. Angiographic interpretation: Type II arch. Normal-appearing right subclavian, brachiocephalic, vertebral artery. Right common carotid appears patent. Right internal and external carotid artery appear patent. On the left, the subclavian appears normal in course and caliber. The common carotid appears patent without significant disease. There is no obvious stenosis at the level of the takeoff of the internal carotid artery, there are measurements of approximately 70% stenosis through its course however there is some bone artifact overlying this as well. No obvious stenosis greater than 80%. Plan - Discharge Summary Discharge Rx Participant: No New Discharge Prescriptions: No Action Escitalopram [Lexapro] 20 mg PO DAILY Baclofen 5 mg PO HS ALPRAZolam [Xanax] 0.5 mg PO DAILY PRN PRN Reason: Anxiety ARIPiprazole [Abilify] 2 mg PO DAILY ALPRAZolam [Xanax] 0.5 mg PO HS Discharge Medication List Baclofen 5 mg PO HS 01/06/22 [History] ALPRAZolam [Xanax] 0.5 mg PO DAILY PRN 08/12/22 [History] ARIPiprazole [Abilify] 2 mg PO DAILY 08/12/22 [History] Escitalopram [Lexapro] 20 mg PO DAILY 08/12/22 [History] ALPRAZolam [Xanax] 0.5 mg PO HS 05/21/24 [History] Follow up Appointment(s)/Referral(s): Levi Patel DO [STAFF PHYSICIAN] - 1 Week (APPOINTMENT MADE ON July @ 10:45AM ) Patient Instructions/Handouts: Carotid Artery Disease (DC), Moderate Sedation (ED), Arteriogram of Carotid Arteries (DC) Activity/Diet/Wound Care/Special Instructions: *NO LIFTING, PUSHING, OR PULLING ANYTHING OVER 5 POUNDS FOR 5 DAYS *NO DRIVING FOR 24 HOURS *YOU CAN REMOVE YOUR DRESSING TOMORROW BUT DO NOT SUBMERSE YOUR PUNCTURE SITE IN WATER FOR A FEW DAYS TO PREVENT INFECTION - SO NO TUB BATHS, POOLS, HOT TUBS, DISHES...ETC *ANY SIGNS OF BLEEDING (HARDNESS, SWELLING, OR EXCESSIVE BRUISING) HOLD DIRECT PRESSURE ON YOUR PUNCTURE SITE AND COME TO THE NEAREST EMERGENCY ROOM TO GET YOUR PUNCTURE SITE LOOKED AT - DO NOT DRIVE YOURSELF! EITHER CALL EMS OR HAVE SOMEONE DRIVE YOU! Discharge Disposition: HOME SELF-CARE
[2024-07-06 12:00] VITALS: BP 108/57
== END 2024-07-06 12:38 | disposition home or self-care (01) ==
LOC: CATHCVL 06:06
PROVIDERS: ATTEND Surgery
DX: I65.23 Occlusion and stenosis of bilateral carotid arteries (principal); Z79.899 Other long term (current) drug therapy; Z86.73 Personal history of transient ischemic attack (TIA), and cerebral infarction without residual deficits
CPT/HCPCS: 99152; 99153; 36200; 36222; 80048; 85025; C1769 ×2; C1894; J2250; J2001; J3010; J1644; Q9967; J2305; 36223